=== PATIENT | female | born 1940 | race Caucasian/White ===

== ENCOUNTER → 2016-09-26 | Outpatient (CLI) | payer MEDICARE, OTHER ==
--- NOTE | 2016-09-26 12:46 | MM ---
Reason for exam: clinical finding. History: Patient is postmenopausal. Family history of breast cancer in mother at age 40. Took estrogen for 5 years. Took progesterone for 5 years. Indicated problem(s): pain in the right breast. Physical Findings: Nurse Summary: 1.5cm nodule in the left breast at 11 o'clock (nurse mm). MG 3D Diag Mammo W/Cad PACHECO Bilateral CC and MLO view(s) were taken. There are scattered fibroglandular densities. Benign calcifications bilaterally. These results were verbally communicated with the patient and result sheet given to the patient on 09/26/16. ASSESSMENT: Incomplete: need additional imaging evaluation, BI-RAD 0 RECOMMENDATION: Ultrasound of both breasts.
--- NOTE | 2016-09-26 12:49 | USB ---
Reason for exam: additional evaluation requested from abnormal screening. History: Patient is postmenopausal. Family history of breast cancer in mother at age 40. Took estrogen for 5 years. Took progesterone for 5 years. US Breast Limited BILAT Left breast ultrasound is negative. Right breast ultrasound including all four quadrants, the retroareolar region and axilla demonstrates a 0.52 x 0.24 x 0.72cm cystic lesion at 1 o'clock, a 0.57 x 0.45 x 0.5cm lipoma at 3 o'clock, a 0.25 x 0.28 x 0.26cm lesion too small to characterize at 3 o'clock, a 0.47 x 0.32 x 1.22cm mixed lesion at 6 o'clock and duct ectasia at the nipple. These results were verbally communicated with the patient and result sheet given to the patient on 09/26/16. ASSESSMENT: Suspicious, BI-RAD 4 RECOMMENDATION: Ultrasound core biopsy of the right breast. Called with mammographic findings and has scheduled an appointment for the patient for 10/04/16 at 1:[address] Song. PRELIMINARY REPORT CALLED AND FAXED TO DR. SONG ON 09/26/16 AT 300/TMP.
== END | disposition home or self-care (01) ==
LOC: RADMAMWWP 10:23
PROVIDERS: ATTEND Obstetrics & Gynecology
DX: N64.4 Mastodynia (principal); R92.8 Other abnormal and inconclusive findings on diagnostic imaging of breast
CPT/HCPCS: 76642; G0204; G0279

== ENCOUNTER → 2016-11-21 | Day surgery (SDC) | payer MEDICARE, OTHER ==
[~2016-11-21] MED LIST: ALPRAZolam 0.25 MG TAB ONE
--- NOTE | 2016-11-21 13:52 | USB ---
EXAMINATION TYPE: US discontinued breast core RT DATE OF EXAM: 11/21/2016 1:11 PM CLINICAL HISTORY: 76-year-old female referred for ultrasound-guided right breast biopsy R92.8. COMPARISON: Ultrasound 09/26/2016 TECHNIQUE: The 6:00 position of the right breast was scanned in efforts to identify the 1.2 cm elongated mixed l esion located 4 cm from the nipple, zone B/C seen on 09/26/2016. FINDINGS: At 6:00, there is a tiny 5 x 1 x 2 mm lesion too small to characterize but located 3 cm from the nipp le zone 8. The previously seen 6:00 lesion could not be identified. The procedure was discontinued. Findings were discussed with the patient. IMPRESSION: BI-RADS 3 - probably benign. RECOMMENDATION: 1. Six-month follow-up targeted right breast ultrasound at the 6:00 position. 2. Patient should continue monthly self breast exam. 3. Clinical management of any suspicious palpable abnormalities.
== END ==
LOC: RADUSWWP 10:53
PROVIDERS: ATTEND Surgery
DX: N63 Unspecified lump in breast (principal); Z53.8 Procedure and treatment not carried out for other reasons

== ENCOUNTER 2016-12-19 13:04 | Day surgery (SDC) | payer MEDICARE, OTHER ==
[2016-12-15 16:02] VITALS: BMI 30.9
[~2016-12-19 13:04] MED LIST changes: -ALPRAZolam 0.25 MG TAB ONE; +DEXAMETHASONE SOD PHOSPHATE 10 MG/ML 1 ML VIAL IV ONE; +HEPARIN SODIUM,PORCINE 5,000 UNIT/ML 1 ML VIAL SQ ONE; +HYDROmorphone 1 MG/ML 1 ML SYRINGE IVP PRN; +LACTATED RINGERS 1,000 ML IV SCH; +MIDAZOLAM 2 MG/2 ML VIAL IV PRN; +ONDANSETRON 4 MG/2 ML VIAL IVP ONE; +ceFAZolin 2 GM in SODIUM CHLORIDE 0.9% 100 ML IVPB ONE
[2016-12-19 13:47] VITALS: RESP 16; TEMP 97.9
[2016-12-19] MEDS ORDERED: LIDOCAINE 1% 20 ML VIAL (10MG/ML) FOR IV START INTRADERMA ONE (13:52)
[2016-12-19] MEDS ORDERED: HEPARIN SODIUM,PORCINE 5,000 UNIT/ML 1 ML VIAL SQ ONE (14:15)
[2016-12-19] MEDS ORDERED: LIDOCAINE 1% INJ 10MG/ML (20 ML MDV) ONE (14:26)
[2016-12-19] MEDS ORDERED: fentaNYL (PF) 50 MCG/ML 2 ML AMP ONE (14:26)
[2016-12-19] MEDS ORDERED: MIDAZOLAM 2 MG/2 ML VIAL ONE (14:26)
[2016-12-19] MEDS ORDERED: PROPOFOL 10 MG/ML 20 ML VIAL IV ONE (14:26)
[2016-12-19] MEDS ORDERED: LIDOCAINE (PF) 10 MG/ML 2 ML VIAL SQ ONE (14:46)
--- NOTE | 2016-12-19 15:09 | P.OP ---
Date of Procedure: 12/19/16 Preoperative Diagnosis: Right breast palpable abnormality, FNA nondiagnostic Postoperative Diagnosis: Same Procedure(s) Performed: Right breast open biopsy Anesthesia: MAC Surgeon: Alta Gilmore Estimated Blood Loss (ml): 5 IV fluids (ml): 250 Pathology: other (Right breast tissue) Condition: stable Disposition: PACU Indications for Procedure: Patient with palpable abnormality approximately 12 o'clock position right breast , FNA nondiagnostic, attempted ultrasound unable to identify the area of concern , therefore patient has opted for an open biopsy Operative Findings: Fibrocystic breast changes and probable lipoma Description of Procedure: Patient was taken to the operating room and following sedation the right breast was prepped and draped in a sterile fashion. One percent lidocaine was used to anesthetize the area of concern. This was at approximately 12:00 superior area. Incision was made and carried down to the palpable area of concern. This area was infiltrated just breast tissue which had increased firmness and was approximately 3 x 2 cm in size. Upon evaluation this is most likely a lipoma. Wide excision was performed. Hemostasis was controlled using electrocautery and the Harmonic scalpel. This was well irrigated. After we assured that hemostasis was attained the skin was closed using a 4-0 Monocryl. Steri-Strips were applied. The specimen was oriented by painting it. All instrument and sponge counts were correct at the end of the case. The patient tolerated the procedure in stable condition.
--- NOTE | 2016-12-19 15:10 | P.DS ---
Providers Attending physician: Alta Gilmore Primary care physician: Lj Stephens Plan - Discharge Summary Discharge Medication List Aspirin EC [Ecotrin Low Dose] 81 mg PO DAILY 12/15/16 [History] Escitalopram [Lexapro] 5 mg PO DAILY 12/15/16 [History] HYDROcodone/APAP 10-325MG [[place] 10-325] 1 tab PO Q4HR PRN 12/15/16 [History] LORazepam [Ativan] 1 - 2 mg PO TID PRN 12/15/16 [History] Levothyroxine Sodium [Synthroid] 112 mcg PO DAILY 12/15/16 [History] Metoprolol Tartrate 25 mg PO DAILY 12/15/16 [History] Ranitidine HCl 150 mg PO BID 12/15/16 [History] buPROPion HCL [Wellbutrin XL] 300 mg PO DAILY 12/15/16 [History] rOPINIRole HCL [Requip] 1 mg PO HS PRN 12/15/16 [History] Diphenoxylate HCl/Atropine [Lomotil] 1 tab PO DAILY 12/19/16 [History] Follow up Appointment(s)/Referral(s): Alta Gilmore MD [STAFF PHYSICIAN] - 3 Days Activity/Diet/Wound Care/Special Instructions: Do not drive today Patient may shower in 24 hours Patient is to wear bra at all times Discharge Disposition: HOME SELF-CARE
[2016-12-19 16:10] VITALS: BP 132/74; PULSE 81
== END 2016-12-19 16:24 | disposition home or self-care (01) ==
LOC: OR 13:04
PROVIDERS: ATTEND Surgery
DX: N60.31 Fibrosclerosis of right breast (principal); N64.89 Other specified disorders of breast; I70.8 Atherosclerosis of other arteries; E03.9 Hypothyroidism, unspecified; E78.5 Hyperlipidemia, unspecified; F32.9 Major depressive disorder, single episode, unspecified; F41.1 Generalized anxiety disorder; I10 Essential (primary) hypertension; K21.9 Gastro-esophageal reflux disease without esophagitis; G25.81 Restless legs syndrome; G47.30 Sleep apnea, unspecified; Z79.82 Long term (current) use of aspirin; Z79.899 Other long term (current) drug therapy; Z88.5 Allergy status to narcotic agent
CPT/HCPCS: 19120; 88307; J2250; J2001 ×2; J1644; J1100; J0690; J2405; J3010; J2704

== ENCOUNTER → 2017-07-13 | Outpatient (CLI) | payer MEDICARE ==
--- NOTE | 2017-07-16 07:46 | USB ---
Reason for exam: follow-up at short interval from prior study. History: Patient is postmenopausal. Family history of breast cancer in mother at age 40. US discontinued breast core RT of the right breast, November 21, 2016. Took estrogen for 5 years. Took progesterone for 5 years. Physical Findings: Nurse Summary: prominent tenderness right breast with breast exam, tissue all soft, movable, nodular (nurse ts). US Breast RT Right breast ultrasound includes all four quadrants, the retroareolar region and axilla. Finding demonstrates a 6 x 3 x 4mm oval, cystic lesion at 1 o'clock and a 3 x 3 x 2mm oval, cystic lesion at 2 o'clock. These results were verbally communicated with the patient and result sheet given to the patient on 07/13/17. ASSESSMENT: Benign, BI-RAD 2 RECOMMENDATION: Routine screening mammogram of both breasts in 5 months. Back on schedule for November 2017.
== END | disposition home or self-care (01) ==
LOC: RADUSWWP 14:30
PROVIDERS: ATTEND Surgery
DX: R92.8 Other abnormal and inconclusive findings on diagnostic imaging of breast (principal)

== ENCOUNTER → 2018-01-02 | Outpatient (CLI) | payer MEDICARE, OTHER ==
--- NOTE | 2018-01-04 08:14 | MM ---
Reason for exam: screening (asymptomatic). Last mammogram was performed 1 year and 3 months ago. History: Patient is postmenopausal. Family history of breast cancer in mother at age 40. US discontinued breast core RT of the right breast, November 21, 2016. Took estrogen for 5 years. Took progesterone for 5 years. Physical Findings: A clinical breast exam by your physician is recommended on an annual basis and results should be correlated with mammographic findings. MG 3D Screening Mammo W/Cad Bilateral CC and MLO view(s) were taken. Prior study comparison: September 26, 2016, bilateral MG 3d diag mammo w/cad PACHECO. There is a stable 4mm lower inner quadrant right mass back to 2015. Benign calcifications bilaterally. No suspicious abnormality. New centrally lucent right breast fat necrosis is seen. ASSESSMENT: Benign, BI-RAD 2 RECOMMENDATION: Routine screening mammogram of both breasts in 1 year.
== END | disposition home or self-care (01) ==
LOC: RADMAMWWP 10:52
PROVIDERS: ATTEND Family Medicine
DX: Z12.31 Encounter for screening mammogram for malignant neoplasm of breast (principal)
CPT/HCPCS: 77063; 77067

== ENCOUNTER 2018-07-16 15:59 | Inpatient (IN) | payer MEDICARE, OTHER ==
[2018-07-16] MEDS ORDERED: ONDANSETRON 4 MG/2 ML VIAL IVP STA (17:17)
[2018-07-16] MEDS ORDERED: SODIUM CHLORIDE 0.9% 1,000 ML IV STA ×2 (17:17)
--- NOTE | 2018-07-16 17:21 | ED ---
General Adult HPI - General Chief complaint: Abdominal Pain Stated complaint: vomiting/abdominal pain & body cramps Time Seen by Provider: 07/16/18 17:06 Source: patient, family, RN notes reviewed Mode of arrival: wheelchair Limitations: no limitations - History of Present Illness Initial comments: Chief complaint and history of present illness; this is a 78-year-old female here with family. Patient reports that she was vomiting green bilious material in large amounts for the past 20 hours. No bowel movements. She did urinate a small amount today. Yesterday she abdominal cramping. She did not have pain today. Decreased appetite. - Related Data Home Medications Medication Instructions Recorded Confirmed HYDROcodone/APAP 10-325MG [[place] 1 tab PO Q4HR PRN 12/15/16 07/16/18 10-325] LORazepam [Ativan] 1 mg PO HS PRN 12/15/16 07/16/18 Levothyroxine Sodium [Synthroid] 112 mcg PO DAILY 12/15/16 07/16/18 buPROPion HCL [Wellbutrin XL] 300 mg PO DAILY 12/15/16 07/16/18 rOPINIRole HCL [Requip] 1 mg PO HS PRN 12/15/16 07/16/18 Diphenoxylate HCl/Atropine 1 tab PO DAILY 12/19/16 07/16/18 [Lomotil] Donepezil HCl [Aricept] 10 mg PO HS 07/16/18 07/16/18 Ibuprofen [Motrin] 600 mg PO HS PRN 07/16/18 07/16/18 Multivitamins, Thera [Multivitamin 1 tab PO DAILY 07/16/18 07/16/18 (formulary)] Allergies Allergy/AdvReac Type Severity Reaction Status Date / Time hydromorphone [From Dilaudid] AdvReac Hallucinati Verified 07/16/18 17:10 ons Review of Systems ROS Statement: Those systems with pertinent positive or pertinent negative responses have been documented in the HPI. Review of systems. Patient denies any headache no visual acuity changes denies any chest pain or shortness of breath. Patient denies any abdominal cramping. This time though she did have yesterday. She complains of burping and then vomiting. Large amounts of bilious material. Decreased urinations in fact only 1 urination today. Having difficulty keeping fluids down. No blood in the vomit. No back pain no neurological deficits. All systems were reviewed. Past medical problems significant for COPD, osteoarthritis, renal disease chronic. Hypothyroidism. Varicose veins. Patient denies liver disease. Patient's had surgeries include cholecystectomy, total hysterectomy and a biopsy of the breast which was negative. The patient reportedly had uterine cancer but was cured with total hysterectomy. The patient's family history includes cancers of the breast, skin, kidney, uterine cancer as well as lung and liver cancers. The patient has ALLERGIES to Dilaudid. She quit smoking over 25 years ago denies alcohol use. ROS Other: All systems not noted in ROS Statement are negative. Past Medical History Past Medical History: COPD, Liver Disease, Osteoarthritis (OA), Renal Disease, Thyroid Disorder Additional Past Medical History / Comment(s): VARICOSE VEINS History of Any Multi-Drug Resistant Organisms: None Reported Past Surgical History: Cholecystectomy, Hysterectomy Additional Past Surgical History / Comment(s): BIOPSY OF BREAST, CERVICAL FUSION , RIGHT AND LEFT SHOULDER Past Anesthesia/Blood Transfusion Reactions: Previous Problems w/ Anesthesia Additional Past Anesthesia/Blood Transfusion Reaction / Comment(s): SEVERE ANXIETY Past Psychological History: Anxiety Smoking Status: Former smoker Past Alcohol Use History: None Reported Past Drug Use History: None Reported - Past Family History Mother Family Medical History: No Reported History Sister(s) Family Medical History: Cancer Brother(s) Family Medical History: Cancer General Exam - General Exam Comments Initial Comments: General: The patient is awake and alert, here because of intractable vomiting for over 20 hours. Green, bilious in nature. Decreased urination. Denying abdominal pain. Vital signs shows temperature 97.7 pulse 113 her story rate 20 pulse ox on percent room air blood pressure 116/82. Eye: Pupils are equal, round and reactive to light, extra-ocular movements are intact ; there is normal conjunctiva bilaterally. No signs of icterus. History of cataract surgery. Ears, nose, mouth and throat: There are moist mucous membranes and no oral lesions. Neck: The neck is supple, there is no tenderness . Cardiovascular: Heart rate 113. No chest pain or palpitations. No murmurs appreciated. Respiratory: Lungs are clear to auscultation, respirations are non-labored, breath sounds are equal. No wheezes, stridor, rales, or rhonchi. Gastrointestinal: Soft, non-distended, mildly tender with deep palpation to the epigastric region without masses or organomegaly noted. There is no rebound or guarding present. No CVA tenderness. Bowel sounds are unremarkable. Back: There is no tenderness to palpation in the midline. There is no obvious deformity. No rashes noted. Musculoskeletal: Normal ROM, no tenderness, There is no pedal edema. There is no calf tenderness or swelling. Sensation intact. Neurological: CN II-XII intact, There are no obvious motor or sensory deficits. Coordination appears grossly intact. Speech is normal. Denies numbness tingling or balance problems. Skin: Skin is warm and dry and no rashes or lesions are noted. Psychiatric: Cooperative, Limitations: no limitations Course Vital Signs 07/16/18 07/16/18 16:06 19:43 Temperature 97.7 F Pulse Rate 113 H 91 Respiratory 20 18 Rate Blood Pressure 116/82 129/60 O2 Sat by Pulse 100 100 Oximetry Medical Decision Making - Medical Decision Making Medical decision making; a 78-year-old female here with family. The patient reports she's had nausea and vomiting for 20 hours. Bilious in color. Scant urine output today. No bowel movement. Denies passing gas. Mild discomfort with palpation of the epigastric region. The patient denies any abdominal pain at this time. Labs on a white count elevated 16.5 hemoglobin 15 hematocrit of 46. Potassium 4.3. Patient has a history of tonic renal disease and today's renal function shows a BUN of 53 creatinine 2.4 to an a GFR of 19. Plasma lactic acid is elevated at 2.9. Amylase lipase normal. Two-view x-ray of the abdomen was done reviewed by radiologist his impression is no acute intra-abdominal pathology appreciated. As read by Dr. Paulo Huerta Reexamination after hydration finds patient states she is feeling slightly better. Mild discomfort with palpation of the epigastric region. We did discuss her recent vomiting. Is been no diarrhea. Though if and when she provides a stool sample a C. diff will be requested. The case discussed with Dr. Sanders. Patient be admitted to his service. Also discussed with on-call general surgeon Dr. bang. Patient will be rehydrated through the evening. Allowed ice chips. Nurses to notify surgeon if her condition changes. - Lab Data Result diagrams: 07/16/18 17:44 07/16/18 17:44 Lab Results 07/16/18 07/16/18 07/16/18 Range/Units 17:44 17:44 17:44 WBC 16.5 H (3.8-10.6) k/uL RBC 5.36 (3.80-5.40) m/uL Hgb 15.3 (11.4-16.0) gm/dL Hct 46.5 H (34.0-46.0) % MCV 86.9 (80.0-100.0) fL MCH 28.5 (25.0-35.0) pg MCHC 32.8 (31.0-37.0) g/dL RDW 15.6 H (11.5-15.5) % Plt Count 454 H (150-450) k/uL Neutrophils % 83 % Lymphocytes % 12 % Monocytes % 4 % Eosinophils % 1 % Basophils % 0 % Neutrophils # 13.7 H (1.3-7.7) k/uL Lymphocytes # 1.9 (1.0-4.8) k/uL Monocytes # 0.7 (0-1.0) k/uL Eosinophils # 0.1 (0-0.7) k/uL Basophils # 0.0 (0-0.2) k/uL Sodium 141 (137-145) mmol/L Potassium 4.3 (3.5-5.1) mmol/L Chloride 99 (98-107) mmol/L Carbon Dioxide 25 (22-30) mmol/L Anion Gap 17 mmol/L BUN 53 H (7-17) mg/dL Creatinine 2.42 H (0.52-1.04) mg/dL Est GFR (CKD-EPI)AfAm 21 (>60 ml/min/1.73 sqM) Est GFR (CKD-EPI)NonAf 19 (>60 ml/min/1.73 sqM) Glucose 157 H (74-99) mg/dL Plasma Lactic Acid Ketan 2.9 H* (0.7-2.0) mmol/L Calcium 10.8 H (8.4-10.2) mg/dL Total Bilirubin 1.0 (0.2-1.3) mg/dL AST 39 H (14-36) U/L ALT 34 (9-52) U/L Alkaline Phosphatase 78 (38-126) U/L Total Protein 8.6 H (6.3-8.2) g/dL Albumin 5.0 (3.5-5.0) g/dL Amylase 70 (30-110) U/L Lipase 48 (23-300) U/L Disposition Clinical Impression: Abdominal pain, Vomiting bile Disposition: ADMITTED IP TO THIS HOSP Condition: Fair Is patient prescribed a controlled substance at d/c from ED?: No Referrals: Lj Stephens MD [Primary Care Provider] - 1-2 days
[2018-07-16 17:59] LABS: Basophils % (A) 0 %; Eosinophils # (A) 0.1 k/uL (0-0.7); Eosinophils % (A) 1 %; HCT 46.5 % (34.0-46.0); HGB 15.3 gm/dL (11.4-16.0); Lymphocytes # (A) 1.9 k/uL (1.0-4.8); Lymphocytes % (A) 12 %; MCH 28.5 pg (25.0-35.0); MCHC 32.8 g/dL (31.0-37.0); MCV 86.9 fL (80.0-100.0); Mean Platelet Volume 6.4; Monocytes # (A) 0.7 k/uL (0-1.0); Monocytes % (A) 4 %; Neutrophils # (A) 13.7 k/uL (1.3-7.7); Neutrophils % (A) 83 %; Platelet Count 454 k/uL (150-450); RBC 5.36 m/uL (3.80-5.40); RDW 15.6 % (11.5-15.5); WBC 16.5 k/uL (3.8-10.6)
[2018-07-16 18:09] LABS: Calcium 10.8 mg/dL (8.4-10.2); Potassium 4.3 mmol/L (3.5-5.1); Total Protein 8.6 g/dL (6.3-8.2)
--- NOTE | 2018-07-16 19:38 | XR ---
EXAMINATION TYPE: XR abdomen 2V DATE OF EXAM: 07/16/2018 COMPARISON: NONE HISTORY: Pain and vomiting TECHNIQUE: 2 views FINDINGS: There is no pneumoperitoneum or pneumatosis. The bowel gas pattern is within normal limits. No acute soft tissue or skeletal findings. Visualized lung bases and pleural spaces are negative. IMPRESSION:
[2018-07-16 20:16] LABS: Appearance,Urine Cloudy (Clear); Bilirubin,Urine 2+ (Negative); Blood,Urine Negative (Negative); Color,Urine Yellow; Glucose,Urine (UA) Negative (Negative); Hyaline Casts,Urine 97 /lpf (0-2); Ketones,Urine Negative (Negative); Leukocyte Esterase,Urine Moderate (Negative); Mucus,Urine Many /hpf; Nitrite,Urine Negative (Negative); PH, Urine 5.5 (5.0-8.0); Protein,Urine 2+ (Negative); RBC,Urine 4 /hpf (0-5); Specific Gravity,Urine 1.022 (1.001-1.035); Squamous Epithelial Cell,Urine 9 /hpf (0-4); WBC,Urine 13 /hpf (0-5)
[2018-07-16] MEDS ORDERED: NALOXONE 0.4 MG/ML 1 ML VIAL IV PRN (20:22)
[2018-07-16] MEDS ORDERED: ONDANSETRON 4 MG/2 ML VIAL IVP PRN (20:22)
[2018-07-16] MEDS: PANTOPRAZOLE 40 MG/10 ML VIAL IV SCH (23:56)
[2018-07-16] MEDS: SODIUM CHLORIDE 0.9% 1,000 ML IV SCH (23:56)
[2018-07-17 00:13] VITALS: BMI 27.7
[2018-07-17] MEDS: SODIUM CHLORIDE 0.9% 1,000 ML IV SCH ×3 (04:49→20:23)
[2018-07-17] MEDS: PANTOPRAZOLE 40 MG/10 ML VIAL IV SCH (07:39)
[2018-07-17 09:31] LABS: Basophils # (A) 0.1 k/uL (0-0.2); Basophils % (A) 0 %; Eosinophils % (A) 0 %; HCT 36.4 % (34.0-46.0); Lymphocytes # (A) 3.4 k/uL (1.0-4.8); Lymphocytes % (A) 24 %; MCH 28.4 pg (25.0-35.0); MCHC 32.3 g/dL (31.0-37.0); MCV 87.8 fL (80.0-100.0); Mean Platelet Volume 6.5; Monocytes # (A) 0.6 k/uL (0-1.0); Monocytes % (A) 5 %; Neutrophils # (A) 9.9 k/uL (1.3-7.7); Neutrophils % (A) 69 %; Platelet Count 359 k/uL (150-450); RBC 4.14 m/uL (3.80-5.40); RDW 15.6 % (11.5-15.5); WBC 14.3 k/uL (3.8-10.6)
[2018-07-17 09:46] LABS: HGB 11.7 gm/dL (11.4-16.0)
[2018-07-17 09:54] LABS: Albumin 3.4 g/dL (3.5-5.0); Calcium 8.5 mg/dL (8.4-10.2); Potassium 3.9 mmol/L (3.5-5.1); Total Bilirubin 0.9 mg/dL (0.2-1.3)
[2018-07-17] MEDS ORDERED: IBUPROFEN 600 MG TAB PO PRN (10:37)
[2018-07-17] MEDS: MULTIVITAMINS, THERA 1 EACH TAB PO SCH (11:25)
[2018-07-17] MEDS: buPROPion XL 300 MG TAB.ER.24H PO SCH (11:25)
[2018-07-17] MEDS ORDERED: PIPERACILLIN-TAZOBACTAM 2.25 GM in SODIUM CHLORIDE 0.9% 100 ML IVPB SCH (15:22)
--- NOTE | 2018-07-17 15:38 | P.GSCN ---
History of Present Illness Consult date: 07/17/18 Reason for Consult: Abdominal pain History of present illness: 70-year-old female presented to the emergency room with a chief complaint of developing frequent intractable episodes nausea vomiting abdominal cramping onset 2 days. Patient states she was not able to really eat or drink if she drank or ate something should have a frequent loose stools cramping of the abdomen. Decrease appetite. Patient stated she was vomiting up green bilious material in large amounts. [place] like she was dehydrated. No other sick members at home no prior episodes. Seen in the emergency room heart rate in the 110s creatinine 2.4 and GFR 19 amylase lipase normal liver enzymes normal x- ray of the abdomen 2 view showed no acute intra-abdominal pathology. Patient was given IV fluid. Currently is denying any abdominal pain when questioning. The white count 14.3 afebrile Review of Systems Essentially unremarkable except as mentioned in the present illness Past Medical History Past Medical History: COPD, Hypertension, Osteoarthritis (OA), Renal Disease, Thyroid Disorder Additional Past Medical History / Comment(s): VARICOSE VEINS, diverticulitis, cdiff in 2013 History of Any Multi-Drug Resistant Organisms: None Reported Past Surgical History: Cholecystectomy, Hysterectomy Additional Past Surgical History / Comment(s): BIOPSY OF right BREAST, CERVICAL FUSION, RIGHT AND LEFT SHOULDER. bilateral cataract sx. thyroid sx. Past Anesthesia/Blood Transfusion Reactions: Previous Problems w/ Anesthesia Additional Past Anesthesia/Blood Transfusion Reaction / Comm: SEVERE ANXIETY Past Psychological History: Anxiety, Depression Smoking Status: Former smoker Past Alcohol Use History: None Reported Additional Past Alcohol Use History / Comment(s): STARTED SMOKING AT AGE 18 QUIT IN 1993 SMOKED 2PPD Past Drug Use History: None Reported - Past Family History Mother Family Medical History: No Reported History Sister(s) Family Medical History: Cancer Brother(s) Family Medical History: Cancer Medications and Allergies Home Medications Medication Instructions Recorded Confirmed Type HYDROcodone/APAP 10-325MG [[place] 1 tab PO Q4HR PRN 12/15/16 07/16/18 History 10-325] LORazepam [Ativan] 1 mg PO HS PRN 12/15/16 07/16/18 History Levothyroxine Sodium [Synthroid] 112 mcg PO DAILY 12/15/16 07/16/18 History buPROPion HCL [Wellbutrin XL] 300 mg PO DAILY 12/15/16 07/16/18 History rOPINIRole HCL [Requip] 1 mg PO HS PRN 12/15/16 07/16/18 History Diphenoxylate HCl/Atropine 1 tab PO DAILY 12/19/16 07/16/18 History [Lomotil] Donepezil HCl [Aricept] 10 mg PO HS 07/16/18 07/16/18 History Ibuprofen [Motrin] 600 mg PO HS PRN 07/16/18 07/16/18 History Multivitamins, Thera [Multivitamin 1 tab PO DAILY 07/16/18 07/16/18 History (formulary)] Allergies Allergy/AdvReac Type Severity Reaction Status Date / Time hydromorphone [From Dilaudid] AdvReac Hallucinati Verified 07/16/18 17:10 ons Surgical - Exam Vital Signs Temp Pulse Resp BP Pulse Ox 97.7 F 113 H 20 116/82 100 07/16/18 16:06 07/16/18 16:06 07/16/18 16:06 07/16/18 16:06 07/16/18 16:06 GENERAL APPEARANCE: 78-year-old female patient is alert, oriented, in no acute distress. VITAL SIGNS: Reviewed HEENT: Head is normocephalic and atraumatic. Pupils are equal and reactive. The nares are patent. Oropharynx is clear without lesions. NECK: Supple without lymphadenopathy. Traches midline. HEART: S1, S2. Regular rate and rhythm. Denying chest pain no murmur LUNGS: No crackles or wheezes are heard. No shortness of breath no cough ABDOMEN: Soft, nontender, nondistended with good bowel sounds. No peritoneal signs. No palpable organomegaly or masses. Reports no abdominal pain states less frequent stooling and urinating with no difficulty no no nausea no vomiting EXTREMITIES: Normal skin color and turgor. No cyanosis, rash, ulceration, clubbing or edema. Radial pedal pulses are 2/4 bilaterally. NEUROLOGICAL: No focal deficits. Strength and sensation are grossly intact. Results - Labs 07/17/18 09:07 07/17/18 09:07 Abnormal Lab Results - Last 24 Hours (Table) 07/16/18 07/16/18 07/16/18 Range/Units 17:44 17:44 17:44 WBC 16.5 H (3.8-10.6) k/uL Hct 46.5 H (34.0-46.0) % RDW 15.6 H (11.5-15.5) % Plt Count 454 H (150-450) k/uL Neutrophils # 13.7 H (1.3-7.7) k/uL BUN 53 H (7-17) mg/dL Creatinine 2.42 H (0.52-1.04) mg/dL Glucose 157 H (74-99) mg/dL Plasma Lactic Acid Ketan 2.9 H* (0.7-2.0) mmol/L Calcium 10.8 H (8.4-10.2) mg/dL AST 39 H (14-36) U/L Total Protein 8.6 H (6.3-8.2) g/dL Albumin (3.5-5.0) g/dL Urine Appearance (Clear) Urine Protein (Negative) Urine Bilirubin (Negative) Ur Leukocyte Esterase (Negative) Urine WBC (0-5) /hpf Ur Squamous Epith Cells (0-4) /hpf Hyaline Casts (0-2) /lpf Urine Mucus (None) /hpf 07/16/18 07/17/18 07/17/18 Range/Units 19:37 09:07 09:07 WBC 14.3 H (3.8-10.6) k/uL Hct (34.0-46.0) % RDW 15.6 H (11.5-15.5) % Plt Count (150-450) k/uL Neutrophils # 9.9 H (1.3-7.7) k/uL BUN 58 H (7-17) mg/dL Creatinine 2.09 H (0.52-1.04) mg/dL Glucose 123 H (74-99) mg/dL Plasma Lactic Acid Ketan (0.7-2.0) mmol/L Calcium (8.4-10.2) mg/dL AST (14-36) U/L Total Protein 6.0 L (6.3-8.2) g/dL Albumin 3.4 L (3.5-5.0) g/dL Urine Appearance Cloudy H (Clear) Urine Protein 2+ H (Negative) Urine Bilirubin 2+ H (Negative) Ur Leukocyte Esterase Moderate H (Negative) Urine WBC 13 H (0-5) /hpf Ur Squamous Epith Cells 9 H (0-4) /hpf Hyaline Casts 97 H (0-2) /lpf Urine Mucus Many H (None) /hpf Diabetes panel 07/16/18 07/17/18 Range/Units 17:44 09:07 Sodium 141 141 (137-145) mmol/L Potassium 4.3 3.9 (3.5-5.1) mmol/L Chloride 99 107 (98-107) mmol/L Carbon Dioxide 25 24 (22-30) mmol/L BUN 53 H 58 H (7-17) mg/dL Creatinine 2.42 H 2.09 H (0.52-1.04) mg/dL Glucose 157 H 123 H (74-99) mg/dL Calcium 10.8 H 8.5 (8.4-10.2) mg/dL AST 39 H 31 (14-36) U/L ALT 34 28 (9-52) U/L Alkaline Phosphatase 78 47 (38-126) U/L Total Protein 8.6 H 6.0 L (6.3-8.2) g/dL Albumin 5.0 3.4 L (3.5-5.0) g/dL Calcium panel 07/16/18 07/17/18 Range/Units 17:44 09:07 Calcium 10.8 H 8.5 (8.4-10.2) mg/dL Albumin 5.0 3.4 L (3.5-5.0) g/dL Pituitary panel 07/16/18 07/17/18 Range/Units 17:44 09:07 Sodium 141 141 (137-145) mmol/L Potassium 4.3 3.9 (3.5-5.1) mmol/L Chloride 99 107 (98-107) mmol/L Carbon Dioxide 25 24 (22-30) mmol/L BUN 53 H 58 H (7-17) mg/dL Creatinine 2.42 H 2.09 H (0.52-1.04) mg/dL Glucose 157 H 123 H (74-99) mg/dL Calcium 10.8 H 8.5 (8.4-10.2) mg/dL Adrenal panel 07/16/18 07/17/18 Range/Units 17:44 09:07 Sodium 141 141 (137-145) mmol/L Potassium 4.3 3.9 (3.5-5.1) mmol/L Chloride 99 107 (98-107) mmol/L Carbon Dioxide 25 24 (22-30) mmol/L BUN 53 H 58 H (7-17) mg/dL Creatinine 2.42 H 2.09 H (0.52-1.04) mg/dL Glucose 157 H 123 H (74-99) mg/dL Calcium 10.8 H 8.5 (8.4-10.2) mg/dL Total Bilirubin 1.0 0.9 (0.2-1.3) mg/dL AST 39 H 31 (14-36) U/L ALT 34 28 (9-52) U/L Alkaline Phosphatase 78 47 (38-126) U/L Total Protein 8.6 H 6.0 L (6.3-8.2) g/dL Albumin 5.0 3.4 L (3.5-5.0) g/dL Assessment and Plan Assessment: Impression Present on admission leukocytosis likely reactive Present on admission nausea vomiting abdominal cramping poor oral intake likely due to gastroenteritis Present on admission tachycardia suspect reactive due to hypovolemia poor oral intake dehydration Present on admission acute renal failure suspect due to poor oral intake Prior to admission frequent stooling diarrhea C. diff on admission negative Plan No evidence of an acute surgical abdomen Will follow with you IV hydration IV Zosyn ordered per the attending DVT and GI prophylaxis Surgical consultation dictated for Dr. bang The above impression and plan of care have been discussed and directed by signing physician. Nguyen Patrick nurse practitioner acting as scribe for signing physician.
[2018-07-17] MEDS: PIPERACILLIN-TAZOBACTAM 3.375 GM in SODIUM CHLORIDE 0.9% 100 ML IVPB SCH (16:27)
--- NOTE | 2018-07-17 16:56 | HP ---
HISTORY AND PHYSICAL DATE OF ADMISSION: 07/17/2018 DATE OF SERVICE: 07/17/2018 PRESENT COMPLAINT: Nausea, vomiting, abdominal pain. HISTORY OF PRESENTING COMPLAINT: This is a very pleasant 78-year-old patient of Dr. Stephens from [place]. Chronic stable medical conditions include COPD, osteoarthritis, chronic kidney disease, hypothyroid. The patient night before started off vomiting profusely multiple times, felt to be all bilious. There was no blood. Also had some fever, felt hot, some sweating and chills. Also having significant abdominal pain, diffuse. The patient had 1 bowel movement last night. He felt a little bit better today. Abdominal x-ray findings were nonspecific. Was given IV fluids. The patient's baseline creatinine is not known. EF not known. The patient the day before was not feeling well and barely ate. General surgery was consulted. REVIEW OF SYSTEMS: CONSTITUTIONAL: Weak, tired. HEENT: None. RESPIRATORY: None. CARDIOVASCULAR: None. GASTROINTESTINAL: As above. GENITOURINARY: None. MUSCULOSKELETAL: Arthritic pain in many joints. DERMATOLOGICAL, HEMATOLOGIC, LYMPHATIC: none. PSYCHIATRY: None. NEUROLOGICAL: None. PAST MEDICAL HISTORY: COPD, osteoarthritis, chronic kidney disease, hypothyroid, varicose veins, diverticulosis. PAST SURGICAL HISTORY: Cholecystectomy hysterectomy, biopsy of the right breast, cervical fusion, right left shoulder surgery, bilateral cataract surgery, thyroid surgery. PSYCH HISTORY: Anxiety. SOCIAL HISTORY: The patient smoked for about 40 years, stopped in . Lives with her daughter. FAMILY HISTORY: Of cancer type unknown. PHYSICAL EXAMINATION: VITAL SIGNS: Vital signs on presentation, temperature 97.7, pulse 113, respiration 20, blood pressure 116/82, pulse ox 100 percent on room air. GENERAL APPEARANCE: Average build, lying in bed, tired appearing. EYES: Pupils equal. Conjunctivae pale. HEENT: External appearance of nose and ears normal. Oral cavity normal. NECK: JVD not raised. Mass not palpable. RESPIRATORY: Effort normal. LUNGS: Decreased breath sounds. CARDIOVASCULAR: 1st and 2nd sounds normal. No edema. ABDOMEN: Diffuse tenderness. No guarding or rigidity. Liver and spleen not palpable. LYMPHATICS: No lymph nodes palpable in the neck and axilla. PSYCHIATRY: Alert and oriented x3. Mood and affect normal. NEUROLOGICAL: Pupils equal. Cranial nerves grossly intact. Power and sensation grossly intact. MUSCULOSKELETAL: Evidence of osteoarthritis especially in the hands, knees. INVESTIGATIONS: Admission labs: White count 16.5, hemoglobin 15.3, potassium 4.3, BUN 53, creatinine 2.42. Abdominal x-ray film, personally reviewed by me shows some retained stool. Additionally, the report reports a normal bowel pattern. ASSESSMENT: 1. This is a patient presented with 2 days of nausea, vomiting, profuse vomiting, increased abdominal pain and leukocytosis. The patient may have colitis, also had some fever and chills at home. No fever documented here. We will treat the patient as sepsis and start the patient on IV Zosyn. 2. Chronic obstructive pulmonary disease in an ex-smoker. 3. Primary osteoarthritis multiple joints bilateral. 4. Chronic kidney disease, baseline creatinine unknown. 5. Acute renal failure, prerenal component. Creatinine did come down from 2.4 to 2.09. 6. Hypothyroidism. 7. Colonic diverticulosis. 8. Anxiety depression, not otherwise specified. 9. Restless legs syndrome. 10.Mild cognitive impairment probably from late onset Alzheimer's dementia for which patient is on Aricept. PLAN: The patient is put on IV fluids, IV Zosyn. Home medications are resumed. Care was discussed with the patient. Consultation is done to Nephrology and General surgery. Repeat labs in the morning. Copy to Dr. Stephens. QUINTON / KYLEIGHN: [id number] /
[2018-07-17] MEDS: DONEPEZIL 10 MG TAB PO SCH (20:23)
--- NOTE | 2018-07-17 22:59 | CONS ---
CONSULTATION REASON FOR CONSULT: Renal failure. HISTORY OF PRESENT ILLNESS: Patient is a 78-year-old female who was admitted to the hospital yesterday with complaints of nausea, vomiting, abdominal pain. She had a large amount of green colored emesis and the patient was not able to keep anything down. She denies any fever. There is no chest pain. Cough. The patient does have underlying chronic kidney disease. The patient has CKD and NKF stage III, secondary to nephrosclerosis. Last creatinine was about 1.5 mg/dL. The patient was last seen in 2017. The patient on admission, serum creatinine was 2.49. Patient is maintained on IV fluids. Her creatinine is down to 2.0 now. PAST MEDICAL HISTORY: Significant for CKD, hypertension, hyperlipidemia, history of depression, hypothyroidism, obstructive sleep apnea, chronic back pain, gastroesophageal reflux disease, history of diverticulitis, history of endometrial cancer status post hysterectomy. MEDICATIONS: Medications at home prior to admission included: Secretary, Ativan, Synthroid, Wellbutrin, Requip, Lomotil, Aricept, multivitamins. ALLERGIES: Include DILAUDID. REVIEW OF SYSTEMS: As per HPI. Other systems negative. EXAMINATION: Patient is currently comfortable, awake, alert, oriented x3. She is not in any acute distress. Blood pressure was 101/55, heart rate 98 per minute. She is afebrile. Examination of the heart S1, S2. Examination of the lungs bilateral breath sounds are heard. Abdomen is soft, nontender. There is mild epigastric tenderness noted. Examination of the lower extremities shows no significant edema. LABS: Show sodium of 141, potassium 3.9, chloride 107, BUN 58, serum creatinine 2.09, hemoglobin 11.7 g/dL. UA shows 2+ protein, WBCs of 13, RBCs 4. C diff toxin was negative. The abdominal x-ray did not reveal any significant air-fluid levels. ASSESSMENT: 1. Acute kidney injury, prerenal, currently improving. Continue with IV fluids. 2. Chronic kidney disease stage 3 secondary to nephrosclerosis. Patient does have proteinuria. I am not sure if she has an underlying urine infection at this time. We will monitor and repeat her UA as outpatient. 3. Abdominal pain with nausea and vomiting. Possible bowel obstruction. Patient will be seen by surgery. 4. Hypothyroidism. PLAN: DC Motrin. Continue IV fluids. May continue with antibiotics and repeat labs in a.m. We will check urine culture as well, and we will continue to follow the patient. There are no nephrotoxic medications at this time except for the Motrin. Thank you for this consultation. We will continue to follow the patient with you during her hospitalization. QUINTON / EDMUNDO: [id number] /
[2018-07-18] MEDS: PIPERACILLIN-TAZOBACTAM 3.375 GM in SODIUM CHLORIDE 0.9% 100 ML IVPB SCH ×3 (03:51→21:06)
[2018-07-18] MEDS: SODIUM CHLORIDE 0.9% 1,000 ML IV SCH ×2 (03:51→08:25)
[2018-07-18] MEDS: LEVOTHYROXINE 112 MCG TAB PO SCH (06:07)
[2018-07-18] MEDS: PANTOPRAZOLE 40 MG/10 ML VIAL IV SCH (08:24)
[2018-07-18] MEDS: MULTIVITAMINS, THERA 1 EACH TAB PO SCH (08:25)
[2018-07-18] MEDS: buPROPion XL 300 MG TAB.ER.24H PO SCH (08:25)
[2018-07-18] MEDS: DIPHENOX-ATROP 2.5-0.025 MG 1 EACH TAB PO SCH (10:06)
[2018-07-18 10:32] LABS: Basophils % (A) 0 %; Eosinophils # (A) 0.1 k/uL (0-0.7); Eosinophils % (A) 1 %; HCT 37.4 % (34.0-46.0); HGB 11.9 gm/dL (11.4-16.0); Lymphocytes % (A) 26 %; MCH 28.2 pg (25.0-35.0); MCHC 31.7 g/dL (31.0-37.0); MCV 88.9 fL (80.0-100.0); Mean Platelet Volume 6.5; Monocytes # (A) 0.4 k/uL (0-1.0); Monocytes % (A) 5 %; Neutrophils # (A) 5.1 k/uL (1.3-7.7); Neutrophils % (A) 66 %; Platelet Count 375 k/uL (150-450); RBC 4.21 m/uL (3.80-5.40); RDW 15.1 % (11.5-15.5); WBC 7.6 k/uL (3.8-10.6)
[2018-07-18 10:42] LABS: Calcium 9.1 mg/dL (8.4-10.2); Potassium 4.1 mmol/L (3.5-5.1)
--- NOTE | 2018-07-18 11:55 | P.PN ---
Subjective Progress Note Date: 07/18/18 70-year-old female seen at the bedside sitting up in a chair. Patient states tolerating diet no nausea no vomiting. Denies any abdominal pain when questioning. No stooling. White count 7.6. Electrolytes within normal limits. Stool for C. diff negative. Urinalysis suggested to have a UTI Objective - Vital Signs Vital signs: Vital Signs Temp 98.5 F 07/18/18 06:40 Pulse 83 07/18/18 06:40 Resp 18 07/18/18 06:40 BP 135/65 07/18/18 06:40 Pulse Ox 96 07/18/18 06:40 Intake & Output 07/17/18 07/18/18 07/18/18 18:59 06:59 18:59 Intake Total 960 300 Balance 960 300 Intake: Oral 960 300 Other: # Voids 3 1 - Exam Physical exam 70-year-old female sitting up in a chair pleasant alert oriented 3 states feels much better since being admitted to the hospital with IV fluids for hydration reports no nausea no vomiting no stooling Lungs clear on room air no shortness of breath Heart S1-S2 audible and regular Abdomen soft nontender no nausea no vomiting states no stool no burning urination when questioning no frequency Extremities no edema - Labs CBC & Chem 7: 07/18/18 10:00 07/18/18 10:00 Labs: Abnormal Lab Results - Last 24 Hours (Table) 07/18/18 Range/Units 10:00 Chloride 109 H (98-107) mmol/L BUN 31 H (7-17) mg/dL Creatinine 1.44 H (0.52-1.04) mg/dL Assessment and Plan Assessment: Impression Present on admission leukocytosis likely reactive Present on admission nausea vomiting with a large amount of green colored emesis with abdominal cramping poor oral intake likely due to gastroenteritis Present on admission tachycardia suspect reactive due to hypovolemia poor oral intake dehydration Present on admission acute renal injury prerenal suspect due to poor oral intake Prior to admission frequent stooling diarrhea C. diff on admission negative Stage 3 kidney disease secondary to end nephrosclerosis Plan No evidence of an acute surgical abdomen Will follow with you IV hydration IV Zosyn ordered per the attending DVT and GI prophylaxis Two-view abdominal x-ray follow up on results The above impression and plan of care have been discussed and directed by signing physician. Nguyen Patrick nurse practitioner acting as scribe for signing physician.
--- NOTE | 2018-07-18 12:45 | XR ---
EXAMINATION TYPE: XR abdomen 2V DATE OF EXAM: 07/18/2018 COMPARISON: 07/16/2018 HISTORY: Pain TECHNIQUE: Supine and upright views of the hands. FINDINGS: There is dilated small bowel measuring up to 4.7 cm with scattered air-fluid levels noted. Distal sm all bowel obstruction suspected. Overall findings appear stable relative to the prior study. No convincing evidence for pneumoperitoneum. No unusual calcifications. The lung bases are clear. The osseous structures are intact. IMPRESSION: 1. There is dilated small bowel measuring up to 4.7 cm with scattered air-fluid levels noted. Dista l small bowel obstruction suspected. Overall findings appear stable relative to the prior study.
[2018-07-18] MEDS: DONEPEZIL 10 MG TAB PO SCH (20:00)
--- NOTE | 2018-07-18 20:27 | PN ---
PROGRESS NOTE DATE OF SERVICE: 07/18/2018 PRESENTING COMPLAINT: Abdominal pain. INTERVAL HISTORY: This patient presented with what appears to be acute colitis. Patient did tolerate liquid diet today; had a good bowel movement. Abdominal pain is much improved. No fever. No chills. She is on IV Zosyn. Patient was seen by General Surgery, Dr. Cuellar's team; okay to advance the diet. REVIEW OF SYSTEMS: Done for constitutional, cardiovascular, GI, pulmonary; relevant findings as above. CURRENT MEDICATIONS: Reviewed. They include IV Zosyn. PHYSICAL EXAMINATION: Afebrile. Pulse 72, respiration 16, blood pressure 116/90, pulse ox 97% on room air. GENERAL APPEARANCE: Lying in bed, more comfortable. EYES: Pupils equal. Conjunctivae normal. HEENT: External appearance of nose and ears normal. Oral cavity normal. NECK: JVD not raised. Mass not palpable. RESPIRATORY: Effort normal. LUNGS: Decreased breath sounds. CARDIOVASCULAR: First and second sounds normal. No edema. ABDOMEN: Minimal tenderness. Bowel sounds are present. No guarding or rigidity. PSYCHIATRY: Alert and oriented x3. Mood and affect normal. INVESTIGATIONS: White count 7.6, potassium 4.1, BUN 31, creatinine 1.44. ASSESSMENT: 1. Acute colitis, probably infectious, with good clinical response, causing sepsis on presentation. 2. Chronic obstructive pulmonary disease in an ex-smoker. 3. Primary osteoarthritis in multiple joints, bilateral. 4. Chronic kidney disease, baseline creatinine unknown. 5. Acute renal failure; could be acute tubular necrosis from sepsis. Creatinine is coming down. 6. Hypothyroidism. 7. Colonic diverticulosis. 8. Anxiety and depression not otherwise specified. 9. Restless leg syndrome. 10.Mild cognitive impairment, probably from late-onset Alzheimer's dementia, for which patient is on Aricept. PLAN: Care was discussed with the patient's daughter at the bedside. Questions were answered. The patient remains on full liquids, to be advanced to soft bland in the morning. Spoke to Gregg. She said Surgery is okay to advance the diet. Repeat labs in the morning. MMODL / IJN: [id number] /
[2018-07-18] MEDS: LORazepam 1 MG TAB PO PRN ×2 (21:04→22:18)
--- NOTE | 2018-07-18 23:12 | PN ---
PROGRESS NOTE Patient is seen for followup for acute kidney injury on chronic kidney disease. This morning patient was complaining of shortness of breath. She stated that she felt she was having an anxiety attack. She denied any significant chest pains. IV fluids are running at about 40 mL/hour. Patient has been voiding well. On examination today, blood pressure was 135/65, heart rate 83 per minute. Patient is afebrile. EXAMINATION OF THE HEART: S1, S2. EXAMINATION OF LUNGS: Bilateral breath sounds are heard. ABDOMEN: Soft. Mild tenderness noted in the mid abdomen. Examination of lower extremities shows no significant edema. Labs from today show hemoglobin 11.9 g/dL, serum creatinine 1.4, sodium 141, potassium 4.1. ASSESSMENT: 1. Acute kidney injury, mainly prerenal, currently improved. Patient had been on IV fluids. I will discontinue the IV fluids. 2. Chronic kidney disease, NKF stage III. Renal function at baseline. Etiology is nephrosclerosis. However, patient has proteinuria and this needs to be worked up if persistent. Currently patient also has a urinary tract infection. 3. Pyuria. Urine culture is not back. Patient is maintained on Zosyn. 4. Abdominal pain and bowel obstruction, being followed by Surgery. Patient has been tolerating oral intake. No plans from surgical standpoint. PLAN: Discontinue IV fluids. Continue to encourage increased oral intake. Repeat labs in a.m. Follow up on urine cultures. Patient will need followup as outpatient for CKD. MMODL / IJN: [id number] /
[2018-07-19] MEDS: PIPERACILLIN-TAZOBACTAM 3.375 GM in SODIUM CHLORIDE 0.9% 100 ML IVPB SCH (05:58)
[2018-07-19] MEDS: LEVOTHYROXINE 112 MCG TAB PO SCH (05:58)
[2018-07-19 08:29] LABS: Basophils % (A) 0 %; Eosinophils # (A) 0.1 k/uL (0-0.7); Eosinophils % (A) 2 %; HCT 34.1 % (34.0-46.0); HGB 11.3 gm/dL (11.4-16.0); Lymphocytes # (A) 2.1 k/uL (1.0-4.8); Lymphocytes % (A) 33 %; MCH 29.1 pg (25.0-35.0); MCHC 33.2 g/dL (31.0-37.0); MCV 87.5 fL (80.0-100.0); Mean Platelet Volume 6.3; Monocytes # (A) 0.4 k/uL (0-1.0); Monocytes % (A) 7 %; Neutrophils # (A) 3.6 k/uL (1.3-7.7); Neutrophils % (A) 56 %; Platelet Count 334 k/uL (150-450); RBC 3.89 m/uL (3.80-5.40); RDW 15.2 % (11.5-15.5); WBC 6.4 k/uL (3.8-10.6)
[2018-07-19] MEDS: DIPHENOX-ATROP 2.5-0.025 MG 1 EACH TAB PO SCH (08:33)
[2018-07-19] MEDS: MULTIVITAMINS, THERA 1 EACH TAB PO SCH (08:33)
[2018-07-19] MEDS: PANTOPRAZOLE 40 MG/10 ML VIAL IV SCH (08:33)
[2018-07-19 08:34] LABS: Calcium 8.8 mg/dL (8.4-10.2); Potassium 3.8 mmol/L (3.5-5.1)
[2018-07-19] MEDS: buPROPion XL 300 MG TAB.ER.24H PO SCH (09:18)
--- NOTE | 2018-07-19 10:46 | P.PN ---
Subjective Progress Note Date: 07/19/18 70-year-old female seen at the bedside sitting up in a chair. Patient states tolerating diet no nausea no vomiting. Denies any abdominal pain when questioning. No stooling. Patient states feels much better today anxious to be discharged tolerating the diet White count 6.4 Electrolytes within normal limits. Stool for C. diff negative. Urinalysis suggested to have a UTI the repeat abdominal x-ray done yesterday reviewed the report showed dilated small bowel measuring 4.7cm with scattered air-fluid levels noted distal small bowel obstruction suspected. Patient's abdomen is soft nondistended continues to report no abdominal pain feeling much better since admission Objective - Vital Signs Vital signs: Vital Signs Temp 98.7 F 07/19/18 05:51 Pulse 76 07/19/18 05:51 Resp 18 07/19/18 05:51 BP 119/71 07/19/18 05:51 Pulse Ox 96 07/19/18 05:51 Intake & Output 07/18/18 07/19/18 07/19/18 18:59 06:59 18:59 Intake Total 1200 Balance 1200 Intake: Oral 1200 Other: # Voids 1 3 - Exam Physical exam 70-year-old female sitting up in a chair pleasant alert oriented 3 states no abdominal pain no nausea no vomiting Lungs clear on room air no shortness of breath Heart S1-S2 audible and regular Abdomen soft nontender no nausea no vomiting states no stool no burning urination when questioning no frequency patient reportedly is tolerating a full diet no nausea no vomiting states had 2 bowel movements this morning more formed Extremities no edema - Labs CBC & Chem 7: 07/19/18 08:10 07/19/18 08:10 Labs: Abnormal Lab Results - Last 24 Hours (Table) 07/18/18 07/19/18 07/19/18 Range/Units 10:00 08:10 08:10 Hgb 11.3 L (11.4-16.0) gm/dL Chloride 109 H 110 H (98-107) mmol/L BUN 31 H 21 H (7-17) mg/dL Creatinine 1.44 H 1.21 H (0.52-1.04) mg/dL Microbiology - Last 24 Hours (Table) 07/18/18 Unknown Urine Culture - Preliminary Urine,Clean Catch Assessment and Plan Assessment: Impression Present on admission leukocytosis likely reactive Present on admission nausea vomiting with a large amount of green colored emesis with abdominal cramping poor oral intake likely due to gastroenteritis Present on admission tachycardia suspect reactive due to hypovolemia poor oral intake dehydration Present on admission acute renal injury prerenal suspect due to poor oral intake Prior to admission frequent stooling diarrhea C. diff on admission negative Stage 3 kidney disease secondary to end nephrosclerosis Plan No evidence of an acute surgical abdomen Will follow with you IV hydration IV Zosyn ordered per the attending DVT and GI prophylaxis Okay for discharge from a surgical perspective defer to the timing to the attending The above impression and plan of care have been discussed and directed by signing physician. Nguyen Patrick nurse practitioner acting as scribe for signing physician.
--- NOTE | 2018-07-19 11:56 | P.PN ---
Subjective Patient is seen in follow-up for acute kidney injury. Renal function is improving with creatinine down to 1.21 today. Currently resting in bed. Nausea vomiting resolved. She does admit to having loose bowel movements intermittently. Denies chest pain or shortness of breath. Vital signs are stable. General: The patient appeared well nourished and normally developed. HEENT: Head exam is unremarkable. Neck is without jugular venous distension. LUNGS: Lungs are clear to auscultation and percussion. Breath sounds decreased. HEART: Rate and Rhythm are regular. First and second heart sounds normal. No murmurs, rubs or gallops. ABDOMEN: Abdominal exam reveals normal bowel sounds. Non-tender and non- distended. No evidence of peritonitis. EXTREMITITES: No clubbing, cyanosis, or edema. Objective - Vital Signs Vital signs: Vital Signs Temp 98.7 F 07/19/18 05:51 Pulse 76 07/19/18 05:51 Resp 18 07/19/18 05:51 BP 119/71 07/19/18 05:51 Pulse Ox 96 07/19/18 05:51 Intake & Output 07/18/18 07/19/18 07/19/18 18:59 06:59 18:59 Intake Total 1200 Balance 1200 Intake: Oral 1200 Other: # Voids 1 3 - Labs CBC & Chem 7: 07/19/18 08:10 07/19/18 08:10 Labs: Abnormal Lab Results - Last 24 Hours (Table) 07/19/18 07/19/18 Range/Units 08:10 08:10 Hgb 11.3 L (11.4-16.0) gm/dL Chloride 110 H (98-107) mmol/L BUN 21 H (7-17) mg/dL Creatinine 1.21 H (0.52-1.04) mg/dL Microbiology - Last 24 Hours (Table) 07/18/18 Unknown Urine Culture - Preliminary Urine,Clean Catch Assessment and Plan Plan: Assessment: 1. Nonoliguric acute kidney injury mostly prerenal secondary to nonsteroidals and vomiting. Renal function improving with creatinine down to 1.1 today. 2. Chronic kidney disease stage III with baseline creatinine in the range of 1.3-1.5 secondary to nephrosclerosis. 3. Proteinuria. This can be a nonspecific finding in the setting of acute kidney injury. Will further workup outpatient. 4. Nausea vomiting along with abdominal pain. Improved. Gen. surgery following. No surgical interventions planned. Plan: Encouraged oral intake. I advised her to avoid nonsteroidals and to try Tylenol instead if needed for pain. Follow up outpatient in the next 2 weeks.
[2018-07-19 14:10] VITALS: BP 136/74; PULSE 73; RESP 16; TEMP 98.4
--- NOTE | 2018-07-20 03:09 | DS ---
DISCHARGE SUMMARY DATE OF ADMISSION: 07/16/2018 DATE OF DISCHARGE: 07/19/2018. FINAL DIAGNOSES: 1. Acute colitis probably infectious causing sepsis present on admission. 2. Chronic obstructive pulmonary disease in an ex-smoker. 3. Primary osteoarthritis of multiple joints bilateral. 4. Chronic kidney disease, baseline creatinine unknown. 5. Acute renal failure probably acute tubular necrosis from sepsis. 6. Hypothyroidism. 7. Colonic diverticulosis. 8. Anxiety and depression, not otherwise specified. 9. Restless legs syndrome. 10.Mild cognitive impairment probably from late onset Alzheimer's dementia. HOSPITAL COURSE: This patient presented with abdominal pain, nausea, vomiting, sepsis picture, felt to clinically acute colitis and treated with IV Zosyn to which he responded well. By the time of discharge, feeling greatly improved. Tolerating a diet, up and about up and about. The patient also had acute renal failure. Initial creatinine was 2.42, did come down to 1.21 by the time of discharge. CONSULTATION: Dr. Angulo from Nephrology and Dr. Cuellar from General surgery. Patient was cleared by the consultants to go home. Care was discussed with the patient's daughter. Questions were answered. The patient tolerating a diet. PHYSICAL EXAMINATION: Temperature 98.4, pulse 73, respiratory rate 16, blood pressure 133/74, pulse ox 93 percent on room air. ABDOMEN: Soft nontender. DISCHARGE MEDICATIONS: 1. [place] 10 one tablet q.4h p.r.n. 2. Ativan 1 mg p.o. q.h.s. p.r.n. 3. Synthroid 112 mcg p.o. daily. 4. Wellbutrin XL 300 mg p.o. daily. 5. Requip 1 mg p.o. at bedtime p.r.n. 6. Lomotil 1 tablet p.o. daily. 7. Aricept 10 mg p.o. q.h.s. 8. Multivitamin 1 tablet p.o. daily. 9. Tylenol 500 mg q.4 hours p.r.n. for pain. 10.Augmentin 875 1 tablet p.o. every 12 hours, 14 tablets. 11.Discontinued Motrin. FOLLOW UP: Follow up with Dr. Butler on 08/07/2018, follow up with Dr. Augustus Stephens in [place] on July 26, 2018. Discussion and discharge planning more than [address] Stephens. MMJANET / IJN: [id number] /
[2018-07-20] MEDS ORDERED: PANTOPRAZOLE 40 MG TABLET PO SCH (07:30)
== END 2018-07-19 15:18 | disposition home or self-care (01) | DRG 871 ==
LOC: EC 15:59 → 4MS4W 20:22
PROVIDERS: ADMIT Hospitalist; ATTEND Hospitalist
DX: A41.9 Sepsis, unspecified organism (principal); N17.0 Acute kidney failure with tubular necrosis; N39.0 Urinary tract infection, site not specified; E03.9 Hypothyroidism, unspecified; E78.5 Hyperlipidemia, unspecified; F02.80 Dementia in other diseases classified elsewhere, unspecified severity, without behavioral disturbance, psychotic disturbance, mood disturbance, and anxiety; F41.1 Generalized anxiety disorder; G25.81 Restless legs syndrome; G30.1 Alzheimer's disease with late onset; G47.33 Obstructive sleep apnea (adult) (pediatric); I12.9 Hypertensive chronic kidney disease with stage 1 through stage 4 chronic kidney disease, or unspecified chronic kidney disease; J44.9 Chronic obstructive pulmonary disease, unspecified; K21.9 Gastro-esophageal reflux disease without esophagitis; K52.9 Noninfective gastroenteritis and colitis, unspecified; K57.30 Diverticulosis of large intestine without perforation or abscess without bleeding; M15.9 Polyosteoarthritis, unspecified; N18.3 Chronic kidney disease, stage 3 (moderate); T39.395A Adverse effect of other nonsteroidal anti-inflammatory drugs [NSAID], initial encounter; Z85.42 Personal history of malignant neoplasm of other parts of uterus; Z87.891 Personal history of nicotine dependence; Z90.710 Acquired absence of both cervix and uterus; Z79.890 Hormone replacement therapy; Z79.891 Long term (current) use of opiate analgesic; Z79.899 Other long term (current) drug therapy; Z88.5 Allergy status to narcotic agent; Z90.49 Acquired absence of other specified parts of digestive tract; Z98.1 Arthrodesis status
CPT/HCPCS: 36415; 74019; 80048; 80053; 81001; 82150; 83605; 83690; 85025; 87086; 87324

== ENCOUNTER → 2019-06-06 | Outpatient (CLI) | payer MEDICARE, OTHER ==
--- NOTE | 2019-06-06 23:36 | MR ---
EXAMINATION TYPE: MR cervical spine wo/w con DATE OF EXAM: 06/06/2019 COMPARISON: None HISTORY: Neck pain, BUE radic, headaches x years, no trauma/surgery TECHNIQUE: Multiplanar, multisequence images of the cervical spine were acquired utilizing 7 mL intravenous Gada vist gadolinium contrast. Diffusion weighted imaging was performed. The cervical vertebra have normal alignment. There is previous anterior fusion surgery at C5-6. There is moderate narrowing at C4-5 disc with spur formation. There is also small posterior disc herniatio n at C3-4 and C4-5. There is some facet arthropathy as well. There is 5.5 mm spinal stenosis at C3-4. There is 6 mm spinal stenosis at C4-5. Cervical spinal cord shows no edema. Brainstem is intact. The re is no compression fracture. There is no cervical paraspinal mass. There is some neural foraminal i mpingement on the right side at C4-5 due to uncovertebral spurring. IMPRESSION: Previous surgery. Spondylotic changes. Bony spinal stenosis at C3-4 and C4-5. No fracture. No cord ed ann seen.
== END | disposition home or self-care (01) ==
LOC: RADMRIMAIN 15:27
PROVIDERS: ATTEND Family Medicine
DX: M48.02 Spinal stenosis, cervical region (principal); M47.812 Spondylosis without myelopathy or radiculopathy, cervical region
CPT/HCPCS: 72156; A9585

== ENCOUNTER → 2019-06-19 | Outpatient (CLI) | payer MEDICARE, OTHER ==
[2019-06-19 13:29] LABS: Appearance,Urine Clear (Clear); Bacteria,Urine Rare /hpf; Bilirubin,Urine Negative (Negative); Blood,Urine Negative (Negative); Color,Urine Yellow; Glucose,Urine (UA) Negative (Negative); Hyaline Casts,Urine 3 /lpf (0-2); Ketones,Urine Negative (Negative); Leukocyte Esterase,Urine Large (Negative); Mucus,Urine Rare /hpf; Nitrite,Urine Negative (Negative); PH, Urine 5.5 (5.0-8.0); Protein,Urine Negative (Negative); RBC,Urine 2 /hpf (0-5); Specific Gravity,Urine 1.023 (1.001-1.035); Squamous Epithelial Cell,Urine 2 /hpf (0-4); Urobilinogen,Urine <2.0 mg/dL (<2.0); WBC,Urine 4 /hpf (0-5)
[2019-06-19 14:25] LABS: Basophils # (A) 0.1 k/uL (0-0.2); Basophils % (A) 1 %; Eosinophils # (A) 0.1 k/uL (0-0.7); Eosinophils % (A) 1 %; HCT 37.8 % (34.0-46.0); HGB 12.5 gm/dL (11.4-16.0); Lymphocytes # (A) 2.5 k/uL (1.0-4.8); Lymphocytes % (A) 40 %; MCH 29.6 pg (25.0-35.0); MCHC 33.2 g/dL (31.0-37.0); MCV 89.1 fL (80.0-100.0); Mean Platelet Volume 5.3; Monocytes # (A) 0.3 k/uL (0-1.0); Monocytes % (A) 5 %; Neutrophils # (A) 3.2 k/uL (1.3-7.7); Neutrophils % (A) 51 %; Platelet Count 334 k/uL (150-450); RBC 4.24 m/uL (3.80-5.40); RDW 14.8 % (11.5-15.5); WBC 6.3 k/uL (3.8-10.6)
[2019-06-19 19:38] LABS: Iron Saturation 20.07 (12.00-45.00)
[2019-06-19 19:45] LABS: African American GFR (CKD) 49.8 (60.0-200.0); BUN/Creat Ratio 26.67 Ratio (12.00-20.00); Calcium 9.5 mg/dL (8.7-10.3); Magnesium 2.2 mg/dL (1.5-2.4); Phosphorus 3.1 mg/dL (2.4-5.1); Potassium 4.6 mmol/L (3.5-5.5); Uric Acid 4.9 mg/dL (2.9-7.7); Vitamin D 25 Hydroxy 36.6 ng/mL (30.0-100.0)
[2019-06-19 19:46] LABS: Ferritin 27.6 ng/mL (10.0-291.0)
== END | disposition home or self-care (01) ==
LOC: LABWHC1 12:18
PROVIDERS: ATTEND Internal Medicine Nephrology
DX: N18.3 Chronic kidney disease, stage 3 (moderate) (principal); D63.1 Anemia in chronic kidney disease; E55.9 Vitamin D deficiency, unspecified; N25.81 Secondary hyperparathyroidism of renal origin
CPT/HCPCS: 36415; 80048; 81001; 82306; 82728; 83540; 83550; 83735; 83970; 84100; 84550; 85025

== ENCOUNTER → 2019-08-06 | Outpatient (CLI) | payer MEDICARE, OTHER ==
--- NOTE | 2019-08-06 12:41 | US ---
EXAMINATION TYPE: US kidneys/renal and bladder DATE OF EXAM: 08/06/2019 COMPARISON: NONE CLINICAL HISTORY: N18.3 chronic kidney disease, stage 3. CKD stage III EXAM MEASUREMENTS: Right Kidney: 9.5 x 3.6 x 3.9 cm Left Kidney: 9.3 x 4.4 x 3.7 cm Right Kidney: no evidence of hydronephrosis Left Kidney: sweat sign that can be seen in renal failure. Bladder: appears wnl Bilateral Jets seen: yes There is no evidence for hydronephrosis at this point in time. No nephrolithiasis is seen. No abad s are identified. The urinary bladder is anechoic. Bilateral ureteral jets are seen. IMPRESSION: Renal sweat sign is seen on the left that can be seen in renal failure. Otherwise unremar kable exam.
== END | disposition home or self-care (01) ==
LOC: RADUSWWP 11:33
PROVIDERS: ATTEND Internal Medicine Nephrology
DX: R93.422 Abnormal radiologic findings on diagnostic imaging of left kidney (principal); N18.3 Chronic kidney disease, stage 3 (moderate)
CPT/HCPCS: 76770

== ENCOUNTER → 2020-04-26 | Outpatient (CLI) | payer MEDICARE, OTHER ==
--- NOTE | 2020-04-27 09:16 | MM ---
Reason for exam: clinical finding. Last mammogram was performed 2 years and 4 months ago. History: Patient is postmenopausal and history of other cancer. Family history of breast cancer in daughter at age 57 and breast cancer in mother at age 40. US discontinued breast core RT of the right breast, November 21, 2016. Took estrogen for 5 years. Took progesterone for 5 years. Physical Findings: Nurse did not find any significant physical abnormalities on exam. MG Diagnostic Mammo w CAD [facility] Bilateral CC and MLO view(s) were taken. LM, spot compression CC, and spot compression MLO view(s) were taken of the left breast. Prior study comparison: January 02, 2018, bilateral MG 3d screening mammo w/cad. September 26, 2016, bilateral MG 3d diag mammo w/cad [facility]. There are scattered fibroglandular densities. There is chronic nodularity in the left breast. Vague 3 o'clock focal asymmetry becomes less defined on spot views with an appearance similar to prior. Ultrasound recommended. These results were verbally communicated with the patient and result sheet given to the patient on 04/26/20. ASSESSMENT: Incomplete: need additional imaging evaluation, BI-RAD 0 RECOMMENDATION: Ultrasound of the left breast. (2-4 o'clock)
--- NOTE | 2020-04-27 09:18 | USB ---
Reason for exam: additional evaluation requested from abnormal screening. History: Patient is postmenopausal and history of other cancer. Family history of breast cancer in daughter at age 57 and breast cancer in mother at age 40. US discontinued breast core RT of the right breast, November 21, 2016. Took estrogen for 5 years. Took progesterone for 5 years. US Breast Limited LT Left limited breast ultrasound including focal area of concern, retroareolar and axilla demonstrates a 0.3 x 0.3 x 0.4cm lesion too small to characterize at 3 o'clock. Scanned 12-4 o'clock. Does not clearly correlate to the questioned mammographic finding. 6 month follow up mammogram. These results were verbally communicated with the patient and result sheet given to the patient on 04/26/20. ASSESSMENT: Probably benign, BI-RAD 3 RECOMMENDATION: Follow-up diagnostic mammogram of the left breast in 6 months. Manage on a clinical basis with regard to benign green left nipple discharge.
== END | disposition home or self-care (01) ==
LOC: RADMAMWWP 13:49
DX: R92.8 Other abnormal and inconclusive findings on diagnostic imaging of breast (principal); N61.1 Abscess of the breast and nipple
CPT/HCPCS: 77066

== ENCOUNTER → 2020-11-04 | Outpatient (CLI) | payer MEDICARE, OTHER ==
--- NOTE | 2020-11-04 09:56 | MM ---
Reason for exam: follow-up at short interval from prior study. Last mammogram was performed 6 months ago. History: Patient is postmenopausal and has history of endometrial cancer at age 75. Family history of breast cancer in daughter at age 57 and breast cancer in mother at age 40. US discontinued breast core RT of the right breast, November 21, 2016. Excisional biopsy of both breasts. Took estrogen for 5 years. Took progesterone for 5 years. Physical Findings: Nurse did not find any significant physical abnormalities on exam. MG 3D Diag Mammo W/Cad [facility] Bilateral CC and MLO view(s) were taken. Prior study comparison: April 26, 2020, bilateral MG diagnostic mammo w CAD [facility]. January 02, 2018, bilateral MG 3d screening mammo w/cad. There are scattered fibroglandular densities. There are benign appearing round, linear, vascular calcifications in the left breast. There is no discrete abnormality. These results were verbally communicated with the patient and result sheet given to the patient on 11/04/20. ASSESSMENT: Benign, BI-RAD 2 RECOMMENDATION: Routine screening mammogram of both breasts in 5 months. Back on schedule for April 2021. Manage on a clinical basis with regard to non-spontaneous nipple discharge x 1 year.
== END ==
LOC: RADMAMWWP 07:51
PROVIDERS: ATTEND Family Medicine
DX: R92.1 Mammographic calcification found on diagnostic imaging of breast (principal); Z80.3 Family history of malignant neoplasm of breast; Z78.0 Asymptomatic menopausal state; Z85.42 Personal history of malignant neoplasm of other parts of uterus
CPT/HCPCS: 77066; G0279; 77062

== ENCOUNTER → 2020-12-28 | Outpatient (CLI) | payer MEDICARE, OTHER ==
[2020-12-28 13:36] LABS: Appearance,Urine Cloudy (Clear); Bacteria,Urine Occasional /hpf; Bilirubin,Urine Negative (Negative); Blood,Urine Trace (Negative); Cellular Casts,Urine 1 /lpf (0); Color,Urine Yellow; Glucose,Urine (UA) Negative (Negative); Hyaline Casts,Urine 1 /lpf (0-2); Ketones,Urine Negative (Negative); Leukocyte Esterase,Urine Large (Negative); Mucus,Urine Occasional /hpf; Nitrite,Urine Negative (Negative); PH, Urine 5.5 (5.0-8.0); Protein,Urine 1+ (Negative); RBC,Urine 7 /hpf (0-5); Squamous Epithelial Cell,Urine 9 /hpf (0-4); WBC,Urine 40 /hpf (0-5)
[2020-12-28 13:43] LABS: Creatinine,Urine Random 306.5 mg/dL; Protein/Creatinine Ratio,Urine 0.036
[2020-12-28 18:26] LABS: Basophils # (A) 0.06 X 10*3/uL (0.00-0.10); Basophils % (A) 0.7 %; Eosinophils # (A) 0.07 X 10*3/uL (0.04-0.35); Eosinophils % (A) 0.8 %; HCT 36.4 % (37.2-46.3); HGB 11.5 g/dL (12.0-15.0); Lymphocytes # (A) 2.01 X 10*3/uL (0.90-5.00); MCH 27.4 pg (27.0-32.0); MCHC 31.6 g/dL (32.0-37.0); MCV 86.9 fL (80.0-97.0); Monocytes # (A) 0.67 X 10*3/uL (0.20-1.00); Neutrophils # (A) 5.56 X 10*3/uL (1.80-7.70); Neutrophils % (A) 66.3 %; Platelet Count 368 X 10*3/uL (140-440); RBC 4.19 X 10*6/uL (4.10-5.20); RDW 15.1 % (11.5-14.5); WBC 8.39 X 10*3/uL (4.50-10.00)
[2020-12-28 20:56] LABS: % Iron Saturation 12.55 (12.00-45.00); African American GFR (CKD) 44.9 (60.0-200.0); Albumin 4.1 g/dL (3.80-4.90); BUN/Creat Ratio 20.77 Ratio (12.00-20.00); Calcium 9.1 mg/dL (8.7-10.3); Non-African American GFR(CKD) 38.7 (60.0-200.0); Phosphorus 3.2 mg/dL (2.4-5.1); Potassium 4.2 mmol/L (3.5-5.5); Uric Acid 5.7 mg/dL (2.9-7.7)
[2020-12-28 21:06] LABS: Ferritin 51.5 ng/mL (10.0-291.0)
== END | disposition home or self-care (01) ==
LOC: LABWHC1 12:34
PROVIDERS: ATTEND Internal Medicine Nephrology
DX: E55.9 Vitamin D deficiency, unspecified (principal); N39.0 Urinary tract infection, site not specified; N25.81 Secondary hyperparathyroidism of renal origin; N18.30 Chronic kidney disease, stage 3 unspecified; D64.9 Anemia, unspecified; M10.9 Gout, unspecified; R80.9 Proteinuria, unspecified
CPT/HCPCS: 36415; 80048; 81001; 82040; 82306; 82570; 82728; 83540; 83550; 83735; 83970; 84100; 84156; 84550; 85025

== ENCOUNTER → 2021-05-02 | Outpatient (CLI) | payer MEDICARE, OTHER ==
[2021-05-02 19:14] LABS: Basophils # (A) 0.06 X 10*3/uL (0.00-0.10); Basophils % (A) 0.9 %; Eosinophils # (A) 0.05 X 10*3/uL (0.04-0.35); Eosinophils % (A) 0.7 %; HGB 11.3 g/dL (12.0-15.0); Lymphocytes # (A) 2.94 X 10*3/uL (0.90-5.00); Lymphocytes % (A) 43.2 %; MCH 27.2 pg (27.0-32.0); MCHC 31.4 g/dL (32.0-37.0); MCV 86.5 fL (80.0-97.0); Monocytes # (A) 0.57 X 10*3/uL (0.20-1.00); Monocytes % (A) 8.4 %; Neutrophils # (A) 3.17 X 10*3/uL (1.80-7.70); Neutrophils % (A) 46.5 %; Platelet Count 381 X 10*3/uL (140-440); RBC 4.16 X 10*6/uL (4.10-5.20); RDW 16.4 % (11.5-14.5); WBC 6.81 X 10*3/uL (4.50-10.00)
[2021-05-02 20:53] LABS: Erythrocyte Sedimentation Rate 29 mm/Hr (0-30)
[2021-05-02 21:29] LABS: African American GFR (CKD) 49.1 (60.0-200.0); Albumin 4.4 g/dL (3.80-4.90); Albumin/Globulin Ratio 1.69 (1.60-3.17); Anion Gap 8.8 mmol/L (4.00-12.00); BUN/Creat Ratio 25.83 Ratio (12.00-20.00); Calcium 9.8 mg/dL (8.7-10.3); Carbon Dioxide 25.2 mmol/L (21.6-31.8); Globulin 2.6 g/dL (1.6-3.3); Non-African American GFR(CKD) 42.3 (60.0-200.0); Potassium 4.9 mmol/L (3.5-5.5); Total Bilirubin 0.5 mg/dL (0.3-1.2)
== END | disposition home or self-care (01) ==
LOC: LABWHC1 14:32
PROVIDERS: ATTEND Family Medicine
DX: I10 Essential (primary) hypertension (principal)
CPT/HCPCS: 36415; 80053; 82607; 84443; 85025; 85652

== ENCOUNTER → 2022-05-25 | Outpatient (CLI) | payer MEDICARE, OTHER ==
--- NOTE | 2022-05-26 07:42 | MM ---
Reason for Exam: Screening (asymptomatic). Last mammogram was performed 1 year(s) and 6 month(s) ago. Patient History: Menarche at age 13. First Full-Term at age 19. Left ovary removed at age 75. Right ovary removed at age 75. Hysterectomy at age 75. Postmenopausal. Endometrial Cancer, age 75. Patient used Estrogen for 5 year. Patient used Progesterone for 5 year. Bilateral Excisional Biopsy. 11/21/2016, US discontinued breast core RT on the right side. Daughter had breast cancer, age 57. Mother had breast cancer, age 40. Risk Values: Lesley 5 year model risk: 8.7%. NCI Lifetime model risk: 11.4%. Prior Study Comparison: 01/02/2018 Bilateral Screening Mammogram, [facility]. 04/26/2020 Bilateral Diagnostic Mammogram, [facility]. 11/04/2020 Bilateral Diagnostic Mammogram, [facility]. Tissue Density: There are scattered fibroglandular densities. Findings: Analyzed By CAD. There is no suspicious group of microcalcifications or new suspicious mass in either breast. Overall Assessment: Benign, BI-RAD 2 Management: Screening Mammogram of both breasts in 1 year. A clinical breast exam by your physician is recommended on an annual basis and results should be correlated with mammographic findings. Electronically signed and approved by: Vega Sahni M.D. Radiologis
== END | disposition home or self-care (01) ==
LOC: RADMAMWWP 12:43
PROVIDERS: ATTEND Family Medicine
DX: Z12.31 Encounter for screening mammogram for malignant neoplasm of breast (principal); Z78.0 Asymptomatic menopausal state; Z80.3 Family history of malignant neoplasm of breast; Z98.890 Other specified postprocedural states
CPT/HCPCS: 77063; 77067

== ENCOUNTER → 2023-07-19 | Outpatient (CLI) | payer MEDICARE, OTHER ==
--- NOTE | 2023-07-22 16:35 | MM ---
Reason for Exam: Screening (asymptomatic). Last mammogram was performed 1 year(s) and 2 month(s) ago. Patient History: Menarche at age 13. First Full-Term at age 19. Left ovary removed at age 75. Right ovary removed at age 75. Hysterectomy at age 75. Postmenopausal. Endometrial cancer, age 75. Patient used Estrogen for 5 years. Patient used Progesterone for 5 years. Bilateral Excisional Biopsy. 11/21/2016, US discontinued breast core RT on the right side. Daughter had breast cancer, age 57. Mother had breast cancer, age 40. Risk Values: Lesley 5 year model risk: 8.3%. NCI Lifetime model risk: 10.1%. Prior Study Comparison: 04/26/2020 Bilateral Diagnostic Mammogram, [facility]. 11/04/2020 Bilateral Diagnostic Mammogram, [facility]. 05/25/2022 Bilateral MG 3D screening mammo w/cad, [facility]. Tissue Density: There are scattered fibroglandular densities. Findings: Analyzed By CAD. Bilateral vascular calcifications. There is gradually enlarging central focal asymmetry on the left posterior depth for further evaluation is recommended. Overall Assessment: Incomplete: need additional imaging evaluation, BI-RAD 0 Management: Special View Mammogram of the left breast. Diagnostic Breast Ultrasound of the left breast. Additional views to include spot 3-D CC, spot 3-D MLO, 3-D CC rolled, and 3-D lateral views. Subsequent whole left breast ultrasound. [facility] will attempt to contact patient to return for supplemental views and ultrasound if indicated. Electronically signed and approved by: Sagar Snowden M.D. Radiologist
== END | disposition home or self-care (01) ==
LOC: RADMAMWWP 12:42
PROVIDERS: ATTEND Family Medicine
DX: Z12.31 Encounter for screening mammogram for malignant neoplasm of breast (principal); Z78.0 Asymptomatic menopausal state; Z80.3 Family history of malignant neoplasm of breast
CPT/HCPCS: 77063; 77067

== ENCOUNTER → 2023-08-01 | Outpatient (CLI) | payer MEDICARE, OTHER ==
--- NOTE | 2023-08-01 13:47 | MM ---
Reason for Exam: Additional evaluation requested from abnormal screening. Last screening mammogram was performed less than 1 month ago. Patient History: Menarche at age 13. First Full-Term at age 19. Left ovary removed at age 75. Right ovary removed at age 75. Hysterectomy at age 75. Postmenopausal. Patient used Estrogen for 5 years. Patient used Progesterone for 5 years. Bilateral Excisional Biopsy. 11/21/2016, US discontinued breast core RT on the right side. Daughter had breast cancer, age 57. Mother had breast cancer, age 40. Risk Values: Lesley 5 year model risk: 8.3%. NCI Lifetime model risk: 10.1%. Prior Study Comparison: 11/04/2020 Bilateral Diagnostic Mammogram, [facility]. 05/25/2022 Bilateral MG 3D screening mammo w/cad, [facility]. 07/19/2023 Bilateral MG 3D screening mammo w/cad, [facility]. Tissue Density: Left: The breast tissue is heterogeneously dense. This may lower the sensitivity of mammography. Findings: Analyzed By CAD. Left breast spiculated focal lesion, 6.0 cm from the nipple in the inferior aspect slightly lateral. Overall Assessment: Incomplete: need additional imaging evaluation, BI-RAD 0 Management: Diagnostic Breast Ultrasound of the left breast. Results were given to the patient verbally at the time of exam. Patient should continue monthly self-breast exams. A clinical breast exam by your physician is recommended on an annual basis. This exam should not preclude additional follow-up of suspicious palpable abnormalities. Note on Lesley scores and lifetime risk: 1. A Lesley score greater than 3% is considered moderate risk. If this is the case, consider specialist referral to assess eligibility for a risk reducing agent. 2. If overall lifetime risk for the development of breast cancer is 20% or higher, the patient may qualify for future screening with alternating mammogram and breast MRI. Electronically signed and approved by: Cristofer June DO
--- NOTE | 2023-08-01 14:10 | USB ---
Reason for Exam: Additional evaluation requested from abnormal screening. Patient History: Menarche at age 13. First Full-Term at age 19. Left ovary removed at age 75. Right ovary removed at age 75. Hysterectomy at age 75. Postmenopausal. Patient used Estrogen for 5 years. Patient used Progesterone for 5 years. Bilateral Excisional Biopsy. 11/21/2016, US discontinued breast core RT on the right side. Daughter had breast cancer, age 57. Mother had breast cancer, age 40. Risk Values: Lesley 5 year model risk: 8.3%. NCI Lifetime model risk: 10.1%. Technique: Method: Whole Breast Handheld. Prior Study Comparison: 11/04/2020 Bilateral Diagnostic Mammogram, [facility]. 05/25/2022 Bilateral MG 3D screening mammo w/cad, [facility]. 07/19/2023 Bilateral MG 3D screening mammo w/cad, [facility]. Findings: The whole breast of the left breast, the axilla of the left breast and the retroareolar of the left breast were scanned. Technique utilized:US breast workup complete LT Image; Ultrasound imaging of: Area of concern, retroareolar region and axilla. Left breast 4:00 4 cm from the nipple is a irregular shaped hypoechoic lesion measuring 12 x 7 x 9 mm. Overall Assessment: Suspicious, BI-RAD 4 Management: Ultrasound Core Biopsy of the left breast. A clinical breast exam by your physician is recommended on an annual basis and results should be correlated with mammographic findings. This exam should not preclude additional follow-up of suspicious palpable abnormalities. Results were given to the patient verbally at the time of exam. Electronically signed and approved by: Cristofer June DO
== END | disposition home or self-care (01) ==
LOC: RADMAMWWP 13:22
PROVIDERS: ATTEND Family Medicine
DX: R92.332 Mammographic heterogeneous density, left breast (principal); Z78.0 Asymptomatic menopausal state; Z80.3 Family history of malignant neoplasm of breast
CPT/HCPCS: 77065; 76641; G0279; 77061

== ENCOUNTER → 2023-08-15 | Day surgery (SDC) | payer MEDICARE, OTHER ==
--- NOTE | 2023-08-21 11:52 | MM ---
Reason for Exam: Post Procedure Mammogram. Last screening mammogram was performed less than 1 month ago. Patient History: Menarche at age 13. First Full-Term at age 19. Left ovary removed at age 75. Right ovary removed at age 75. Hysterectomy at age 75. Postmenopausal. Patient used Estrogen for 5 years. Patient used Progesterone for 5 years. Bilateral Excisional Biopsy. 11/21/2016, US discontinued breast core RT on the right side. Daughter had breast cancer, age 57. Mother had breast cancer, age 40. Risk Values: Lesley 5 year model risk: 8.3%. NCI Lifetime model risk: 10.1%. Prior Study Comparison: 11/04/2020 Bilateral Diagnostic Mammogram, [facility]. 05/25/2022 Bilateral MG 3D screening mammo w/cad, [facility]. 07/19/2023 Bilateral MG 3D screening mammo w/cad, [facility]. 08/01/2023 Left MG 3D work up w/cad , [facility]. Tissue Density: Left: There are scattered fibroglandular densities. Pathology Description: Location: 4 o'clock. Marker Left Behind. Needle Type: Mammotome Cores: 3 Skin Nicks: 1 The procedure of ultrasound guided core biopsy was explained to the patient. Benefits, alternatives, and risks were discussed. An informed consent was then obtained. A timeout was performed. The patient was placed in supine positioning for imaging and for the procedure. The overlying skin was prepped and draped in usual sterile fashion. Lidocaine was used as anesthetic into the skin and subcutaneous tissue up to area of concern in the left breast. A small skin cabrera was made with surgical scalpel. Under ultrasound guidance, a 12-gauge vacuum assisted biopsy gun device was used to obtain 3 core samples. A biopsy clip was left in lesion. Hydromark coil core marker was placed. The patient tolerated the procedure well without any immediate complication. The patient was kept in the radiology department for short stay after the procedure and then discharged home in stable condition. Postprocedure mammogram: The patient was transferred to mammography for physician ordered post procedure mammogram for clip placement verification. Impression: Successful ultrasound guided core biopsy of area of concern in the left breast, full pathology results to follow. Recommendations: 1. Recommendations are pending pathology results. Pathology Results: Result: Malignant, Invasive lobular carcinoma. LEFT BREAST, FOUR O'CLOCK, ULTRASOUND GUIDED NEEDLE CORE BIOPSY: Invasive lobular carcinoma. See Surgical Pathology Cancer Case Summary and Comment. Overall Assessment: Malignant Assessment: MG diagnostic mammo LT wo CAD. - Left: Known biopsy proven malignancy, BI-RAD 6. Management: Surgical Consultation of the left breast. Electronically signed and approved by: Chip Garcia D.O. Radiologis
== END ==
LOC: RADUSWWP 12:35
PROVIDERS: ATTEND Family Medicine
DX: C50.912 Malignant neoplasm of unspecified site of left female breast (principal); Z12.31 Encounter for screening mammogram for malignant neoplasm of breast; Z90.712 Acquired absence of cervix with remaining uterus; Z90.710 Acquired absence of both cervix and uterus; Z80.3 Family history of malignant neoplasm of breast
CPT/HCPCS: 88305; 88342; 88341; 77065; 19083; A4648

== ENCOUNTER → 2023-10-19 | Day surgery (SDC) | payer MEDICARE, OTHER ==
[~2023-10-19] MED LIST changes: -DEXAMETHASONE SOD PHOSPHATE 10 MG/ML 1 ML VIAL IV ONE; -HEPARIN SODIUM,PORCINE 5,000 UNIT/ML 1 ML VIAL SQ ONE; -HYDROmorphone 1 MG/ML 1 ML SYRINGE IVP PRN; -LACTATED RINGERS 1,000 ML IV SCH; -MIDAZOLAM 2 MG/2 ML VIAL IV PRN; -ONDANSETRON 4 MG/2 ML VIAL IVP ONE; -ceFAZolin 2 GM in SODIUM CHLORIDE 0.9% 100 ML IVPB ONE; +fentaNYL (PF) 50 MCG/ML 2 ML AMP ONE
[2023-10-19] MEDS: SODIUM CHLORIDE 0.9% 500 ML 500 ML IV ONE (06:27)
[2023-10-19 06:38] VITALS: TEMP 97.9
[2023-10-19] MEDS: BENZOCAINE SPRAY 1 CAN TOPICAL ONE (07:51)
[2023-10-19] MEDS: MIDAZOLAM 2 MG/2 ML VIAL IVP ONE ×2 (07:52)
[2023-10-19] MEDS: fentaNYL (PF) 50 MCG/ML 2 ML AMP IVP ONE (07:52)
--- NOTE | 2023-10-19 08:08 | P.PCN ---
Date of Procedure: 10/19/23 Operative Findings: TRANSESOPHAGEAL ECHOCARDIOGRAM COATING INSPECTOR: KENDRA LENNON MD, RPVI INDICATION: Rule out cardiac source of embolization SEDATION: Conscious sedation COMPLICATION: None LEVEL OF SEDATION Moderate sedation was 16 minutes PROCEDURE DESCRIPTION: After obtaining an informed consent, the patient was brought to transesophageal echocardiogram room. Pulse oximetry and heart monitors were attached to the patient. The patient throat was sprayed using lidocaine. The patient was turned into left lateral position. After that a bite guard was placed. After an appropriate conscious sedation was initiated, the transesophageal echocardiogram was advanced through a bite guard into the mid esophagus. A 2-D echocardiogram images, color Doppler images, continuous wave images, pulse-wave images, of various cardiac structure were performed. After that the transesophageal echocardiogram probe was advanced into the stomach and fixed to obtain transgastric view was. The probe was brought into the mid esophagus. Inter-atrial septum was interrogated using 2D images, color Doppler images, and then contrast study. After that transesophageal echocardiogram was withdrawn out and upon withdrawing the descending thoracic aorta all the way up to the arch was evaluated. CONCLUSION: 1. Normal LV systolic function with an ejection fraction of 50-55% 2. No evidence of atrial myxoma noted 3. Aortic sclerosis with no stenosis or regurgitation 4. Mitral annular calcification was mild to moderate MR 5. No evidence of pericardial effusion 6. Hyperdynamic interatrial septum was no shunt
[2023-10-19 08:10] VITALS: RESP 16
[2023-10-19 18:55] VITALS: BP 138/64; PULSE 60
== END ==
LOC: CATHCVL 05:58
PROVIDERS: ATTEND Internal Medicine Interventional Cardiology
DX: I34.81 Nonrheumatic mitral (valve) annulus calcification (principal); I70.0 Atherosclerosis of aorta; I10 Essential (primary) hypertension; E78.5 Hyperlipidemia, unspecified; I65.29 Occlusion and stenosis of unspecified carotid artery; F17.210 Nicotine dependence, cigarettes, uncomplicated; Z86.73 Personal history of transient ischemic attack (TIA), and cerebral infarction without residual deficits; Z82.49 Family history of ischemic heart disease and other diseases of the circulatory system; Z88.5 Allergy status to narcotic agent; Z88.8 Allergy status to other drugs, medicaments and biological substances; Z79.899 Other long term (current) drug therapy; Z85.3 Personal history of malignant neoplasm of breast
CPT/HCPCS: 93312; 93320; 93325; 99152; J2250; J3010

== ENCOUNTER 2023-11-26 07:32 | Day surgery (SDC) | payer MEDICARE, OTHER ==
[2023-11-21 12:14] VITALS: BMI 24.4
[~2023-11-26 07:32] MED LIST changes: +MIDAZOLAM 2 MG/2 ML VIAL IV PRN; +fentaNYL (PF) 50 MCG/ML 2 ML AMP IV PRN; -fentaNYL (PF) 50 MCG/ML 2 ML AMP ONE
--- NOTE | 2023-11-26 07:37 | P.GSHP ---
History of Present Illness H&P Date: 11/26/23 Chief Complaint: Left breast cancer 83-year-old female recently seen in the office in September. Refer to recent history and physical for further details. Patient underwent ultrasound-guided core biopsy showing stage I left breast invasive lobular carcinoma. Patient unfortunately had recent TIA. She was seen by cardiology and neurology and cleared to proceed with surgery. Patient is asymptomatic. Past Medical History Past Medical History: Cancer, CVA/TIA, Hypertension, Osteoarthritis (OA), Renal Disease, Thyroid Disorder Additional Past Medical History / Comment(s): VARICOSE VEINS, diverticulitis, c- diff in 2013, kidney issues, TIA Aug 2023, Heart procedure done by Dr. Bunch one month ago. History of Any Multi-Drug Resistant Organisms: C-DIFF Date of last positivie culture/infection: 2017 MDRO Source:: stool Past Surgical History: Cholecystectomy, Hysterectomy Additional Past Surgical History / Comment(s): BIOPSY OF right BREAST, CERVICAL FUSION, RIGHT AND LEFT SHOULDER. bilateral cataract sx. thyroid sx. bunion surgery, Past Anesthesia/Blood Transfusion Reactions: Previous Problems w/ Anesthesia Additional Past Anesthesia/Blood Transfusion Reaction / Comment(s): SEVERE ANXIETY when waking up Past Psychological History: Depression Smoking Status: Former smoker Past Alcohol Use History: None Reported Additional Past Alcohol Use History / Comment(s): STARTED SMOKING AT AGE 18 QUIT IN 1993 SMOKED 2PPD Past Drug Use History: None Reported - Past Family History Sister(s) Family Medical History: Cancer Brother(s) Family Medical History: Cancer Medications and Allergies Home Medications Medication Instructions Recorded Confirmed Type LORazepam [Ativan] 1 mg PO HS PRN 12/15/16 11/21/23 History Levothyroxine Sodium [Synthroid] 150 mcg PO DAILY 12/15/16 11/21/23 History buPROPion HCL [Wellbutrin XL] 300 mg PO DAILY 12/15/16 11/21/23 History Diphenoxylate HCl/Atropine 1 tab PO DAILY 12/19/16 11/21/23 History [Lomotil] Donepezil HCl [Aricept] 10 mg PO BID 07/16/18 11/21/23 History Metoprolol Succinate [Metoprolol 25 mg PO DAILY 08/02/23 11/21/23 History Succinate ER] Atorvastatin [Lipitor] 40 mg PO DAILY 10/16/23 11/21/23 History Clopidogrel [Plavix] 75 mg PO DAILY 10/16/23 11/21/23 History amLODIPine [Norvasc] 5 mg PO DAILY 10/16/23 11/21/23 History Aspirin [Adult Low Dose Aspirin EC] 81 mg PO DAILY 11/21/23 11/21/23 History Multivitamin [Multivitamins Adult 1 each PO DAILY 11/21/23 11/21/23 History Gummies] Allergies Allergy/AdvReac Type Severity Reaction Status Date / Time hydromorphone [From Dilaudid] AdvReac Hallucinati Verified 11/21/23 11:44 ons Surgical - Exam Physical exam: General: Well-developed, well-nourished HEENT: Normocephalic, sclerae nonicteric Right breast: No masses, no adenopathy Left breast: Recent biopsy site noted, no masses, no adenopathy Abdomen: Nontender, nondistended Extremities: No edema Neuro: Alert and oriented Assessment and Plan (1) Breast cancer, left Narrative/Plan: 83-year-old female with left-sided breast cancer. Will proceed with left breast wire localization lumpectomy. Risks of bleeding, infection, scarring, numbness, dimpling, possible need for further surgery, elimination of lymph node sampling, recurrence reviewed. Patient understands and wishes to proceed Current Visit: Yes Status: Acute Code(s): C50.912 - MALIGNANT NEOPLASM OF UNSPECIFIED SITE OF LEFT FEMALE BREAST SNOMED Code(s): 756042862
[2023-11-26] MEDS ORDERED: ACETAMINOPHEN TAB 500 MG TAB ONE (08:28)
[2023-11-26] MEDS: ALPRAZolam 0.25 MG TAB ONE (08:38)
[2023-11-26] MEDS: LACTATED RINGERS 1,000 ML IV SCH (08:38)
[2023-11-26] MEDS: ACETAMINOPHEN TAB 500 MG TAB PO PRN (08:39)
[2023-11-26] MEDS: DEXAMETHASONE SOD PHOSPHATE 4 MG/ML 1 ML VIAL IV ONE (08:39)
[2023-11-26] MEDS: ONDANSETRON 4 MG/2 ML VIAL IVP ONE (08:39)
[2023-11-26 08:58] LABS: Basophils # (A) 0.1 k/uL (0-0.2); Basophils % (A) 1 %; Eosinophils # (A) 0.1 k/uL (0-0.7); Eosinophils % (A) 1 %; HGB 12.4 gm/dL (11.4-16.0); Lymphocytes % (A) 21 %; MCH 29.2 pg (25.0-35.0); MCHC 32.5 g/dL (31.0-37.0); MCV 89.8 fL (80.0-100.0); Mean Platelet Volume 6.9; Monocytes # (A) 0.6 k/uL (0-1.0); Monocytes % (A) 6 %; Neutrophils # (A) 6.6 k/uL (1.3-7.7); Neutrophils % (A) 69 %; Platelet Count 312 k/uL (150-450); RBC 4.23 m/uL (3.80-5.40); RDW 15.1 % (11.5-15.5); WBC 9.5 k/uL (3.8-10.6)
[2023-11-26 09:05] VITALS: RESP 16
[2023-11-26 09:09] LABS: African American GFR (CKD) 56 (>60 ml/min/1.73 sqM); Anion Gap 9 mmol/L; Blood Urea Nitrogen 31 mg/dL (7-17); Calcium 9.4 mg/dL (8.4-10.2); Carbon Dioxide 23 mmol/L (22-30); Chloride 108 mmol/L (98-107); Glucose 102 mg/dL (74-99); Non-African American GFR(CKD) 49 (>60 ml/min/1.73 sqM); Potassium 4.3 mmol/L (3.5-5.1); Sodium 140 mmol/L (137-145)
--- NOTE | 2023-11-26 09:51 | P.NAPBC ---
NAPBC Queries - NAPBC Queries Was patient's case review presented at [facility] tumor board? If no, comment.: Yes Was patient's pathology reviewed at [facility]? If no, comment.: Yes Was breast conservation surgery offered? If no, comment.: Yes Was sentinel node biopsy offered? If no, comment.: Yes (Offered but we decided against given patient's age and stage) Was diagnosis confirmed by percutaneous core biopsy? If no, comment.: Yes Is patient mastectomy patient?: No Was a preop referral to reconstructive surgeon offered?: Yes Clinical Stage: 1
[2023-11-26] MEDS: LIDOCAINE 1% INJ 10MG/ML (20 ML MDV) SQ ONE (09:57)
[2023-11-26] MEDS: HEPARIN SODIUM,PORCINE 5,000 UNIT/ML 1 ML VIAL SQ PRN (11:13)
[2023-11-26] MEDS ORDERED: LIDOCAINE 1% INJ 10MG/ML (20 ML MDV) ONE (12:22)
[2023-11-26] MEDS ORDERED: PHENYLEPHRINE-0.9% NACL SYG 1,000 MCG/10 ML SYRINGE ONE (12:22)
[2023-11-26] MEDS ORDERED: fentaNYL (PF) 50 MCG/ML 2 ML AMP ONE (12:22)
[2023-11-26] MEDS ORDERED: PROPOFOL 10 MG/ML 20 ML VIAL IV ONE (12:22)
[2023-11-26] MEDS: BUPIVACAINE (PF) 0.25% 10 ML VIAL SQ ONE ×2 (12:48)
[2023-11-26] MEDS ORDERED: NALOXONE 0.4 MG/ML 1 ML VIAL IV PRN (13:45)
[2023-11-26] MEDS ORDERED: HYDROmorphone 0.5 MG/0.5 ML SYRINGE IVP PRN (13:45)
--- NOTE | 2023-11-26 13:50 | P.OP ---
Date of Procedure: 11/26/23 Procedure(s) Performed: PREOPERATIVE DIAGNOSIS: Left breast cancer POSTOPERATIVE DIAGNOSIS: Same PROCEDURE: Left breast wire localization lumpectomy SURGEON: Pollo EBL: Minimal ANESTHESIA: General COMPLICATIONS: None OPERATIVE PROCEDURE: Patient was placed on the operating room table in the supine position. The breast was prepped and draped sterilely. The wire entrance site was then addressed. This was present at the 5:00 location oriented medially and superiorly. A curvilinear incision was made adjacent to the wire entrance site. I followed the wire down into the breast tissue. An adequate lumpectomy specimen then took place around the wire. Margins of 1.5-2 cm worth attempted to be achieved. Palpation of the specimen suggested that the posterior margin was somewhat close. I took an additional margin posteriorly and the specimen was painted the appropriate color on the new margin side. The initial specimen was also painted the appropriate 6 colors. Clips were used to identify the lumpectomy cavity. The clip was confirmed to be within the lumpectomy specimen by radiology. The subcutaneous tissues were closed using 3- 0 Vicryl sutures. The skin was closed using a running 4-0 Monocryl stitch. Skin glue was then applied. DISPOSITION: Stable to recovery room
[2023-11-26 13:58] VITALS: TEMP 97
[2023-11-26 14:33] VITALS: PULSE 67
[2023-11-26] MEDS: HYDROcodone/APAP 5-325MG 1 EACH TAB PO PRN (14:37)
[2023-11-26 15:09] VITALS: BP 118/83
--- NOTE | 2023-11-27 20:13 | USB ---
EXAM: US breast localization LT DATE OF EXAM: 11/26/2023 COMPARISON: 07/19/2023 Bilateral MG 3D screening mammo w/cad, [facility]. 08/01/2023 Left MG 3D work up w/c ad LT, [facility]. 08/15/2023 Left MG diagnostic mammo LT wo CAD., [facility]. DESCRIPTION: The needle localization procedure with wire placement for surgical excision was explained to the titus ent. Benefits, alternatives, and risks were discussed. An informed consent was then obtained. A ti meout was performed. The overlying skin was prepped in usual sterile fashion. Lidocaine was used as anesthetic into the s kin and subcutaneous tissue up to the level of area of concern. A 7 cm needle was used. It was plac ed using a lateral approach under ultrasound guidance. Subsequent 90 degrees mammogram show the need le to be in satisfactory position relative to the targeted area. The wire was placed and the needle was withdrawn. The wire was fixed to patient's skin. Wire positioning was discussed with the referri ng surgeon prior to surgery. The patient tolerated the procedure well without any immediate complication. The patient was kept in the radiology department for short stay after the procedure and then taken to surgery for surgical e xcision. Specimen: Biopsy marker and wire are identified in specimen mammogram. Impression: 1. Successful needle localization with wire placement and surgical excision of biopsy marker.
--- NOTE | 2023-12-03 10:25 | MM ---
Reason for Exam: Post Procedure Mammogram. Last screening mammogram was performed 4 month(s) ago. Patient History: Menarche at age 13. First Full-Term at age 19. Left ovary removed at age 75. Right ovary removed at age 75. Hysterectomy at age 75. Postmenopausal. Breast cancer, left, age 83. Patient used Estrogen for 5 years. Patient used Progesterone for 5 years. 08/15/2023, Malignant US biopsy breast VAD LT on the left side. Bilateral Excisional Biopsy. 11/21/2016, US discontinued breast core RT on the right side. Daughter had breast cancer, age 57. Mother had breast cancer, age 40. Prior Study Comparison: 07/19/2023 Bilateral MG 3D screening mammo w/cad, [facility]. 08/01/2023 Left MG 3D work up w/cad LT, [facility]. 08/15/2023 Left MG diagnostic mammo LT wo CAD., [facility]. Tissue Density: Left: There are scattered areas of fibroglandular density. Pathology Description: Location: 4 o'clock. Needle Type: 7 cm K[place] The needle localization procedure with wire placement for surgical excision was explained to the patient. Benefits, alternatives, and risks were discussed. An informed consent was then obtained. A timeout was performed. The overlying skin was prepped in usual sterile fashion. Lidocaine was used as anesthetic into the skin and subcutaneous tissue up to the level of area of concern. A 7 cm needle was used. It was placed using a lateral approach under ultrasound guidance. Subsequent 90 degrees mammogram show the needle to be in satisfactory position relative to the targeted area. The wire was placed and the needle was withdrawn. The wire was fixed to patient's skin. Wire positioning was discussed with the referring surgeon prior to surgery. The patient tolerated the procedure well without any immediate complication. The patient was kept in the radiology department for short stay after the procedure and then taken to surgery for surgical excision. Specimen: Biopsy marker and wire are identified in specimen mammogram. Impression: 1. Successful needle localization with wire placement and surgical excision of biopsy marker. Pathology Results: Result: Malignant, Invasive lobular carcinoma. Pathology and radiology were reviewed. Findings are concordant. A. LEFT BREAST, LUMPECTOMY: Invasive lobular carcinoma, margins negative for malignancy. See Surgical Pathology Cancer Case Summary and Comment. B. LEFT BREAST, NEW POSTERIOR MARGIN, EXCISION: Lobular neoplasia (ALH/LCIS), flat epithelial atypia (FEA) not involving the margins, and fibrocystic changes. Negative for invasive malignancy. Overall Assessment: Malignant Assessment: MG diagnostic mammo LT wo CAD. - Left: Known biopsy proven malignancy, BI-RAD 6. Management: Surgical Consultation of the left breast. See pathology results: new posterior margin. Electronically signed and approved by: Chip Garcia D.O. Radiologis
== END 2023-11-26 15:28 | disposition home or self-care (01) ==
LOC: OR 07:32
PROVIDERS: ATTEND Surgery
DX: C50.912 Malignant neoplasm of unspecified site of left female breast (principal); I10 Essential (primary) hypertension; M19.90 Unspecified osteoarthritis, unspecified site; F32.A Depression, unspecified; Z86.73 Personal history of transient ischemic attack (TIA), and cerebral infarction without residual deficits; Z90.710 Acquired absence of both cervix and uterus; Z90.49 Acquired absence of other specified parts of digestive tract; Z87.891 Personal history of nicotine dependence; Z79.890 Hormone replacement therapy; Z79.899 Other long term (current) drug therapy; Z79.02 Long term (current) use of antithrombotics/antiplatelets; Z88.5 Allergy status to narcotic agent
CPT/HCPCS: 19301; 80048; 85025; 88307; 77065; 76098; 19285; C1819; J1644; J1100; J0690; J2405; J2001; J3010; J2704; J2371; J0665

== ENCOUNTER → 2024-02-07 | Outpatient (CLI) | payer MEDICARE, OTHER ==
--- NOTE | 2024-02-07 20:10 | BD ---
EXAMINATION TYPE: Axial Bone Density DATE OF EXAM: 02/07/2024 CLINICAL HISTORY: 84 years old Female. 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 Bone mineral density as measured about the Lumbar spine is: ----- L1-L4(G/cm2): 1.400 T Score Values are as follows: ----- L1: 0.7 ----- L2: 1.4 ----- L3: 2.2 ----- L4: 2.3 ----- L1-L4: 1.8 Z Score Values are as follows: ----- L1: 2.7 ----- L2: 3.4 ----- L3: 4.2 ----- L4: 4.4 ----- L1-L4: 3.9 Bone mineral density baseline Bone mineral density about the R hip (g/cm2): 0.884 Bone mineral density about the L hip (g/cm2): 0.974 T Score values are as follows: -----R Neck: -1.1 -----L Neck: -0.6 -----R Total: -1.0 -----L Total: -0.3 Z Score values are as follows: -----R Neck: 1.3 -----L Neck: 1.8 -----R Total: 1.3 -----L Total: 2.1 Bone mineral density baseline FRAX%s: The graph provided illustrates a 12.3% chance for a major osteoporotic fx and a 2.9% chance f or the hips probability for fx in 10 years time. IMPRESSION: Osteopenia (T Score between -2.5 and -1). There is slightly increased risk of fracture and the patient may be considered for treatment. Re-Screen 2-5 years. NOTE: T-SCORE=SD OF THE YOUNG ADULT MEAN.
== END | disposition home or self-care (01) ==
LOC: RADBDWWP 15:39
PROVIDERS: ATTEND Internal Medicine Hematology & Oncology
DX: M85.851 Other specified disorders of bone density and structure, right thigh (principal); C50.112 Malignant neoplasm of central portion of left female breast; I67.89 Other cerebrovascular disease; E03.9 Hypothyroidism, unspecified; Z71.3 Dietary counseling and surveillance
CPT/HCPCS: 77080

== ENCOUNTER → 2025-03-16 | Outpatient (CLI) | payer MEDICARE, OTHER ==
--- NOTE | 2025-03-16 14:26 | MM ---
Reason for Exam: Hx of breast cancer, conservation therapy. Last mammogram was performed 1 year(s) and 8 month(s) ago. Patient History: Menarche at age 13. First Full-Term at age 19. Left ovary removed at age 75. Right ovary removed at age 75. Hysterectomy at age 75. Postmenopausal. Breast cancer, left, age 83. Patient used Estrogen for 5 years. Patient used Progesterone for 5 years. 11/26/2023, Lumpectomy on the Left side. 11/26/2023, Malignant US breast localization LT on the left side. 08/15/2023, Malignant US biopsy breast VAD LT on the left side. Bilateral Excisional Biopsy. 11/21/2016, US discontinued breast core RT on the right side. Daughter had breast cancer, age 57. Mother had breast cancer, age 40. Tissue Density: There are scattered areas of fibroglandular density. Findings: Analyzed By CAD. Stable benign calcifications. Postoperative changes left breast. No new mass or skin thickening. Overall Assessment: Benign, BI-RAD 2 Management: Screening Mammogram of both breasts in 1 year. . Results were given to the patient verbally at the time of exam. Patient should continue monthly self-breast exams. A clinical breast exam by your physician is recommended on an annual basis. This exam should not preclude additional follow-up of suspicious palpable abnormalities. Note on Lesley scores and lifetime risk: 1. A Lesley score greater than 3% is considered moderate risk. If this is the case, consider specialist referral to assess eligibility for a risk reducing agent. 2. If overall lifetime risk for the development of breast cancer is 20% or higher, the patient may qualify for future screening with alternating mammogram and breast MRI. [facility], , 03/16/2025 1:01 PM. Electronically signed and approved by: Vega Sahni M.D. [facility]
== END | disposition home or self-care (01) ==
LOC: RADMAMWWP 12:30
PROVIDERS: ATTEND Family Medicine
DX: R92.8 Other abnormal and inconclusive findings on diagnostic imaging of breast (principal); R92.323 Mammographic fibroglandular density, bilateral breasts; R92.1 Mammographic calcification found on diagnostic imaging of breast; Z78.0 Asymptomatic menopausal state; Z85.3 Personal history of malignant neoplasm of breast; Z80.3 Family history of malignant neoplasm of breast; Z98.890 Other specified postprocedural states
CPT/HCPCS: 77066; G0279; 77062